=== PATIENT | male | born 1970 | race African-American/Black ===

== ENCOUNTER 2017-08-24 01:18 | Emergency (ER) | payer BC ==
[2017-08-24] MEDS ORDERED: Nitroglycerin 2% Ointment 1 INCH/1 GM Packet ONE (01:58)
[2017-08-24] MEDS ORDERED: Furosemide 40 MG/4 ML VIAL ONE (01:58)
[2017-08-24 03:05] LABS: Band 2 % (5-11); Hematocrit 31.7 % (42.0-52.0); Mean Platelet Volume 7.7 fL (7.4-10.4); Microcytosis SLIGHT = 6-15 cells (100X) (0-5/hpf); Neutrophil 57 % (42-75); Red Blood Cell (RBC) Count 3.66 mill/uL (4.70-6.10); White Blood Cell (WBC) Count 6.7 thou/uL (4.8-10.8)
[2017-08-24 03:49] LABS: Troponin I 0.037 ng/mL (< 0.028)
[2017-08-24 04:02] LABS: ALT (SGPT) 38 U/L (8-55); AST (SGOT) 33 U/L (5-34); Alkaline Phosphatase 108 U/L (40-150); Anion Gap 12 mmol/L (10-20); BUN (Urea Nitrogen) 27 mg/dL (8.9-20.6); Bilirubin, Total 0.3 mg/dL (0.2-1.2); Calc. Creatinine Clearance 0 mL/min (70-130); Calcium 8.8 mg/dL (7.8-10.44); Carbon Dioxide 24 mmol/L (22-29); Chloride 107 mmol/L (98-107); Estimated GFR-MDRD 63; Globulin 3.3 g/dL (2.4-3.5); Lipase 30 U/L (8-78); Protein, Total 6.7 g/dL (6.0-8.3)
--- NOTE | 2017-08-24 07:56 | RAD ---
PORTABLE CHEST 1 VIEW: Date: 08/24/17 Time: 0220 hours HISTORY: Dyspnea. FINDINGS: Comparison made with exam of 04/11/17. Changes of median sternotomy are again seen. The heart size is borderline. There is continued elevat ion of the right hemidiaphragm. No lobar consolidation, pneumothorax, jessica pulmonary edema, or pleu ral effusions are seen. IMPRESSION: No acute process. POS: JOSELIN
== END 2017-08-24 04:36 | disposition home or self-care (01) ==
LOC: SCSER 01:18
DX: I13.0 Hypertensive heart and chronic kidney disease with heart failure and stage 1 through stage 4 chronic kidney disease, or unspecified chronic kidney disease (principal); E11.22 Type 2 diabetes mellitus with diabetic chronic kidney disease; E11.65 Type 2 diabetes mellitus with hyperglycemia; I50.9 Heart failure, unspecified; N18.2 Chronic kidney disease, stage 2 (mild); E78.00 Pure hypercholesterolemia, unspecified; Z79.899 Other long term (current) drug therapy; Z79.4 Long term (current) use of insulin
CPT/HCPCS: 71010; 80053; 82553; 83690; 83880; 84484; 85025; 96374; J1940

== ENCOUNTER 2017-12-26 10:47 | Emergency (ER) | payer BC, OTHER, SELFPAY ==
[2017-12-26] MEDS ORDERED: Fentanyl 100 MCG/2 ML VIAL ONE (12:33)
== END 2017-12-26 12:28 | disposition home or self-care (01) ==
LOC: SCSER 10:47
DX: I10 Essential (primary) hypertension (principal); I25.10 Atherosclerotic heart disease of native coronary artery without angina pectoris; I25.2 Old myocardial infarction; E11.9 Type 2 diabetes mellitus without complications; Z79.4 Long term (current) use of insulin; E78.5 Hyperlipidemia, unspecified; Z79.899 Other long term (current) drug therapy
CPT/HCPCS: 93005; J3010

== ENCOUNTER 2019-08-12 10:35 | Day surgery (SDC) | payer MEDICARE ==
[2019-08-12] MEDS ORDERED: Phenylephrine HCL 10 MG/ML VIAL ONE (11:25)
[2019-08-12] MEDS ORDERED: Fentanyl 100 MCG/2 ML VIAL ONE (11:25)
[2019-08-12] MEDS ORDERED: Bupivacaine HCl 0.5%/Epinephrine 1:200,000/PF 30 ml Vial ONE (11:29)
[2019-08-12] MEDS ORDERED: Bupivacaine/Epinephrine 0.25% 30 ML VIAL ONE (11:29)
[2019-08-12] MEDS ORDERED: Heparin 5,000 UNITS/ML VIAL ONE (11:29)
[2019-08-12] MEDS ORDERED: Lidocaine 2% PF 5 ML VIAL ONE (11:29)
[2019-08-12] MEDS ORDERED: Protamine Sulfate 50 MG/5 ML VIAL ONE (11:29)
[2019-08-12] MEDS ORDERED: Heparin 10,000 UNITS/1 ML VIAL ONE (11:29)
[2019-08-12 11:46] LABS: #Eosinphils 0.2 thou/uL (0.0-0.7); #Lymphocytes 1.4 thou/uL (1.20-3.40); #Monocytes 0.5 thou/uL (0.11-0.59); #Neutrophils 3.7 thou/uL (1.40-6.50); %Basophils 0.8 % (0.0-1.0); %Eosinophils 3.1 % (0.0-10.0); %Lymphocytes 24.9 % (21.0-51.0); %Monocytes 7.9 % (0.0-10.0); %Neutrophils 63.2 % (42.0-75.0); Hemoglobin 8.8 g/dL (14.0-18.0); Mean Corpuscular HGB CONC 31.8 g/dL (32.0-36.0); Mean Corpuscular Hemoglobin 30.5 pg (27.0-31.0); Mean Platelet Volume 9.3 fL (7.4-10.4); Platelet Count 146 thou/uL (130-400); RBC Distribution Width 15.8 % (11.5-14.5); White Blood Cell (WBC) Count 5.8 thou/uL (4.8-10.8)
[2019-08-12] MEDS ORDERED: SUGAMMADEX SODIUM 200 MG/2 ML VIAL ONE (12:02)
[2019-08-12 12:21] LABS: Anion Gap 13 mmol/L (10-20); BUN (Urea Nitrogen) 42 mg/dL (8.9-20.6); Calc. Creatinine Clearance 0 mL/min (70-130); Calcium 8.5 mg/dL (7.8-10.44); Carbon Dioxide 20 mmol/L (22-29); Chloride 112 mmol/L (98-107); Estimated GFR-MDRD 14; Glucose 179 mg/dL (70-105); Potassium 3.8 mmol/L (3.5-5.1); Sodium 141 mmol/L (136-145)
[2019-08-12] MEDS ORDERED: hydrALAZINE 20 MG/ML VIAL ONE (14:41)
[2019-08-12] MEDS ORDERED: Heparin 10,000 UNITS/ 10 ML VIAL ONE (16:30)
[2019-08-12] MEDS ORDERED: traMADol HCl 50 MG TAB ONE (16:30)
--- NOTE | 2019-08-12 18:58 | OP ---
DATE OF PROCEDURE: 08/12/2019 PREOPERATIVE DIAGNOSES: End-stage renal disease, status post left radial artery harvest for past coronary artery bypass grafting. POSTOPERATIVE DIAGNOSES: End-stage renal disease, status post left radial artery harvest for past coronary artery bypass grafting. PROCEDURE PERFORMED: Laparoscopic peritoneal dialysis catheter placement; laparoscopic omentopexy; right arm primary fistula; proximal radial artery outflow, cephalic vein only, no communication to basilic vein noted. ANESTHESIA: General, local 0.5% Marcaine with epinephrine 30 mL mixed with 0.25% Marcaine with epinephrine 30 mL. DESCRIPTION OF PROCEDURE: The patient was taken to the operating room, where under general anesthesia, abdomen and right upper extremity were prepared with ChloraPrep and draped in routine fashion. Local anesthetic was infiltrated in the skin and subcutaneous tissue about the operative site. Bilateral subcostal incisions were made. Pneumoperitoneum to 15 mmHg was obtained with a Veress needle, replaced with a 5 port, and laparoscope inserted. Contralateral 5 port was placed. Incision was made in the left paraumbilical. An 8 mm port was placed, directed caudally in the subcutaneous tissue into the rectus sheath, visualized laparoscopically penetrating the posterior fascia and peritoneum dependently, inserting the double cuffed pigtail peritoneal dialysis catheter and placing the internal cuff in the rectus sheath as the port was removed using the [place] dissector, placed through the planned exit site stab incision in left lower quadrant. Nancy dissector was directed toward the counterincision, grasping the catheter, pulling the catheter out the exit site, and placing an external cuff beneath the skin exit site. Subcutaneous tissue was approximated with 3-0 Monocryl, skin with subdermal 4-0 Monocryl, and [place] glue applied as catheter flushed with heparinized saline solution and then the catheter was placed and it was secured within the dressing. Laparoscopic omentopexy was completed under laparoscopic visualization and pneumoperitoneum was reduced. All instruments were removed. All skin incisions were approximated with interrupted subdermal 4-0 Monocryl and [place] glue applied. Incision was made in the proximal volar forearm, carried down to skin and subcutaneous tissue, and extending distally as necessary. Radial artery dissected free. The patient was given 6000 units of heparin intravenously. The distal end of the vein was clipped off branches and triply clipped on outflow as there was no perforating branch. The forearm cephalic vein was then brought into the wound and interrogated with coronary dilators after spatulating the branch point. Coronary dilators from 2 mm to 3.5 mm were passed without obstruction and into the cephalic vein outflow of upper arm. It was flushed with heparinized saline solution. The patient was given 6000 units of heparin intravenously. After adequate circulation time, the proximal radial artery was clamped proximally and distally. Longitudinal arteriotomy was made sharply and elongated with Mcbride scissors. An end vein to side proximal radial artery anastomosis was performed with continuous suture of 6-0 Prolene, completing the anastomosis, administering 50 mg of protamine intravenously. Good hemostasis was noted. Good Doppler signal was noted in the cephalic vein outflow of upper arm. Subcutaneous tissues were approximated with 3-0 Monocryl, skin with subdermal 4-0 Monocryl, and [place] glue applied. Job ID: [id number]
== END 2019-08-12 16:45 | disposition home or self-care (01) ==
LOC: SDC 10:35
PROVIDERS: ATTEND Specialist
PROC: 0WHG43Z Insertion of Infusion Device into Peritoneal Cavity, Percutaneous Endoscopic Approach (ICD-10-PCS; principal; 2019-08-12)
PROC: 031B3ZF Bypass Right Radial Artery to Lower Arm Vein, Percutaneous Approach (ICD-10-PCS; 2019-08-12)
DX: N18.6 End stage renal disease (principal); Z88.8 Allergy status to other drugs, medicaments and biological substances
CPT/HCPCS: 80048; 85025; 93005; 93010; J0131; J0360; J0670; J0690; J1644; J2001; J2370; J2720; J3010

== ENCOUNTER 2019-08-12 18:18 | Emergency (ER) | payer MEDICARE | END 2019-08-12 18:47 | disposition left against medical advice (07) | LOC: ERS 18:18 | DX: Z53.21 Procedure and treatment not carried out due to patient leaving prior to being seen by health care provider (principal) ==

== ENCOUNTER 2019-08-12 19:10 | Emergency (ER) | payer MEDICARE | END 2019-08-12 19:46 | disposition home or self-care (01) | LOC: SCSER 19:10 | DX: T81.89XA Other complications of procedures, not elsewhere classified, initial encounter (principal) ==

== ENCOUNTER 2019-08-17 09:02 | Emergency (ER) | payer MEDICARE | END 2019-08-17 10:39 | disposition home or self-care (01) | LOC: SCSER 09:02 | DX: T85.838A Hemorrhage due to other internal prosthetic devices, implants and grafts, initial encounter (principal); E11.22 Type 2 diabetes mellitus with diabetic chronic kidney disease; I12.0 Hypertensive chronic kidney disease with stage 5 chronic kidney disease or end stage renal disease; N18.6 End stage renal disease; I25.10 Atherosclerotic heart disease of native coronary artery without angina pectoris; Z79.4 Long term (current) use of insulin; Z91.14 Patient's other noncompliance with medication regimen; Z79.899 Other long term (current) drug therapy | CPT/HCPCS: 99283 ==

== ENCOUNTER 2019-08-24 10:37 | Emergency (ER) | payer MEDICARE | END 2019-08-24 11:05 | disposition home or self-care (01) | LOC: SCSER 10:37 | DX: Z48.00 Encounter for change or removal of nonsurgical wound dressing (principal); E11.22 Type 2 diabetes mellitus with diabetic chronic kidney disease; N18.6 End stage renal disease; Z99.2 Dependence on renal dialysis; I25.10 Atherosclerotic heart disease of native coronary artery without angina pectoris; Z79.4 Long term (current) use of insulin; Z79.899 Other long term (current) drug therapy | CPT/HCPCS: 99282 ==

== ENCOUNTER 2019-09-03 03:46 | Emergency (ER) | payer MEDICARE, MEDICAID ==
[2019-09-03 04:53] LABS: #Basophils 0.1 thou/uL (0.0-0.2); #Eosinphils 0.4 thou/uL (0.0-0.7); #Lymphocytes 1.6 thou/uL (1.20-3.40); #Monocytes 0.5 thou/uL (0.11-0.59); %Basophils 1.1 % (0.0-1.0); %Eosinophils 7.2 % (0.0-10.0); %Lymphocytes 28.4 % (21.0-51.0); %Monocytes 8.7 % (0.0-10.0); %Neutrophils 54.6 % (42.0-75.0); Hemoglobin 10.7 g/dL (14.0-18.0); Mean Corpuscular HGB CONC 32.6 g/dL (32.0-36.0); Mean Corpuscular Hemoglobin 30.8 pg (27.0-31.0); Mean Corpuscular Volume 94.5 fL (78.0-98.0); Mean Platelet Volume 9.7 fL (7.4-10.4); Platelet Count 144 thou/uL (130-400); RBC Distribution Width 15.7 % (11.5-14.5); Red Blood Cell (RBC) Count 3.48 mill/uL (4.70-6.10); White Blood Cell (WBC) Count 5.5 thou/uL (4.8-10.8)
[2019-09-03 05:15] LABS: ALT (SGPT) 21 U/L (8-55); AST (SGOT) 22 U/L (5-34); Albumin 3.5 g/dL (3.5-5.0); Alkaline Phosphatase 81 U/L (40-110); Anion Gap 20 mmol/L (10-20); BUN (Urea Nitrogen) 86 mg/dL (8.9-20.6); Bilirubin, Total 0.5 mg/dL (0.2-1.2); Calc. Creatinine Clearance 0 mL/min (70-130); Carbon Dioxide 22 mmol/L (22-29); Chloride 102 mmol/L (98-107); Estimated GFR-MDRD 6; Globulin 2.7 g/dL (2.4-3.5); Glucose 200 mg/dL (70-105); Potassium 4.6 mmol/L (3.5-5.1); Protein, Total 6.2 g/dL (6.0-8.3); Sodium 139 mmol/L (136-145)
[2019-09-03 06:10] LABS: CKMB 27.5 ng/mL (0-6.6)
--- NOTE | 2019-09-03 07:29 | RAD ---
Exam: Chest one view HISTORY:Short of breath Comparison: 08/24/2017 FINDINGS: Lungs: Mild interstitial prominence bilaterally Cardiac silhouette:Enlarged cardiac silhouette, with evidence of prior sternotomy. Tunneled vascular catheter projects from a right internal jugular approach, tip overlying right atria l region. Pulmonary vessels: Mild engorgement Pleural Spaces: No significant effusion Pneumothorax: None Osseous abnormalities: None of acuity. IMPRESSION: Fluid overload.
== END 2019-09-03 05:53 | disposition home or self-care (01) ==
LOC: ERS 03:46
DX: R06.02 Shortness of breath (principal); R05 Cough; E11.22 Type 2 diabetes mellitus with diabetic chronic kidney disease; N18.6 End stage renal disease; Z99.2 Dependence on renal dialysis; Z79.899 Other long term (current) drug therapy
CPT/HCPCS: 71045; 80053; 82553; 83880; 84484; 85025; 93005

== ENCOUNTER 2019-09-03 18:54 | Inpatient (IN) | payer MEDICAID, MEDICARE ==
[2019-09-03 20:25] LABS: Hemoglobin 11.9 g/dL (14.0-18.0); Mean Corpuscular HGB CONC 32.6 g/dL (32.0-36.0); Mean Corpuscular Hemoglobin 31.2 pg (27.0-31.0); Mean Corpuscular Volume 95.7 fL (78.0-98.0); Mean Platelet Volume 10.3 fL (7.4-10.4); Platelet Count 130 thou/uL (130-400); RBC Distribution Width 15.8 % (11.5-14.5); Red Blood Cell (RBC) Count 3.81 mill/uL (4.70-6.10); White Blood Cell (WBC) Count 5.1 thou/uL (4.8-10.8)
[2019-09-03 20:39] LABS: Hypochromia SLIGHT = 6-15 cells (100X) (0-5/hpf); Lymphocytes 23 % (21-51); MDiff Complete? YES; Monocytes 2 % (0-10); Neutrophil 75 % (42-75); Platelet Morphology Comment Appears Adequate
[2019-09-03 21:01] LABS: Albumin 3.6 g/dL (3.5-5.0)
[2019-09-03 21:02] LABS: Chloride 106 mmol/L (98-107); Potassium 6.1 mmol/L (3.5-5.1); Sodium 142 mmol/L (136-145)
[2019-09-03 21:04] LABS: Globulin 2.9 g/dL (2.4-3.5); Protein, Total 6.5 g/dL (6.0-8.3)
[2019-09-03 21:05] LABS: Anion Gap 26 mmol/L (10-20); Bilirubin, Total 0.6 mg/dL (0.2-1.2); Carbon Dioxide 16 mmol/L (22-29)
[2019-09-03 21:06] LABS: CKMB 30.7 ng/mL (0-6.6)
[2019-09-03 21:07] LABS: Calc. Creatinine Clearance 0 mL/min (70-130); Estimated GFR-MDRD 6
[2019-09-03 21:08] LABS: AST (SGOT) 27 U/L (5-34)
[2019-09-03 22:00] LABS: Glucose 315 mg/dL (70-105)
[2019-09-03 22:03] LABS: Alkaline Phosphatase 79 U/L (40-110)
[2019-09-03 22:04] LABS: BUN (Urea Nitrogen) 94 mg/dL (8.9-20.6)
[2019-09-03 22:06] LABS: ALT (SGPT) 22 U/L (8-55)
--- NOTE | 2019-09-03 23:59 | PDOC.FPRHP ---
- History of Present Illness Chief Complaint: shortness of breath, abnormal lab History of Present Illness: 48yo AAM with ESRD on Peritoneal dialysis, HTN, DMII, CAD s/p 4v CABG who present to ED after receiving call to return to ED for abnormal lab. Pt awoke this morning at 0400 with dyspnea. Presented to ED, trop was indeterminate at 0.069. Pt VSS and was discharged with return precautions. Pt states sxs of dyspnea resolved. Was called by Dr. Haile and told to return to ED. Currently pt states his only complaint is uncomfortable with peritoneal dialysis. States he was on HD since Nov 2018. Recently started on peritoneal dialysis, states he does not like this form of dialysis. Is planning to switch back to HD, has right fistula placed Aug 12 and right trialysis cath in place. Pt currently denies any SOB, CP, orthopnea, PND, LE edema, n/v, diaphoresis. Endorses alternating constipation and diarrhea, chronically. ED Course: Trops trended. EKG obtained. Dialysis nurse called to begin peritoneal dialysis in ED. - Allergies/Adverse Reactions Allergies Allergy/AdvReac Type Severity Reaction Status Date / Time ketorolac tromethamine Allergy Intermediate "felt like Verified 09/04/19 03:17 [From Toradol] I was going to fall out" amlodipine Allergy Verified 09/04/19 03:17 - Home Medications Medication Instructions Recorded Confirmed Type Nitroglycerin 0.4 mg SL PRN PRN 04/11/17 09/04/19 History Aspirin [Aspir-Low] 81 mg PO DAILY 08/11/19 09/04/19 History Carvedilol [Coreg] 25 mg PO BID-WM 08/11/19 09/04/19 History Ferrous Sulfate [Ferosul] 325 mg PO DAILY 08/11/19 09/04/19 History Furosemide 40 mg PO BID 08/11/19 09/04/19 History Insulin Detemir 100 UNITS/ML 50 units SC BID PRN 08/11/19 09/04/19 History [Levemir] Isosorbide Mononitrate 1 tab PO QAM 08/11/19 09/04/19 History cloNIDine [Catapres] 0.2 mg PO BID 08/11/19 09/04/19 History hydrALAZINE [Apresoline] 20 mg PO TID 08/11/19 09/04/19 History Pravastatin Sodium 40 mg PO HS 09/04/19 09/04/19 History Comments: Reviewed medications above with patient. He does not take crestor. He takes Pravastatin 40 mg daily. All other medications above are correct. . - History PMHx: ESRD on dialysis, HTN, DMII, CAD PSHx: 4v CABG 2015, Right fistula placement (08/12) FHx: HTN, Mother- CHF, Brother- Prostate Cancer, Sister- Stroke Social: Denies any smoking, drinking or illicit drug use. Lives at home by himself. 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 denies: cough, congestion Cardiovascular: denies: chest pain, palpitation, edema, orthopnea Gastrointestinal: reports: diarrhea, constipation, abdominal pain (2/2 peritoneal dialysis). denies: nausea, vomiting, GI bleeding Skin: denies: rashes, lesions Musculoskeletal: denies: pain, stiffness, swelling, arthritis/arthralgias Neurological: denies: numbness, weakness Psychological: denies: anxiety, depression - Vital signs BP: [207/101] HR: [67] RR: [18] Tmax: [] Pox: [95]% on [RA] Wt: [101kg] - Physical Exam Constitutional: NAD, awake, alert and oriented, well developed HEENT: EOMI, grossly normal vision, grossly normal hearing, MMM, oropharynx clear Neck: supple, trachea midline Heart: RRR, normal S1/S2, no murmurs/rubs/gallops, pulses present, no edema Lungs: CTAB, no respiratory distress, good air movement, no rales/rhonchi, no wheezing Abdomen: soft, other (mildly TTP, peritoneal dialysis) Neurological: no focal deficit Skin: no rash/lesions Heme/Lymphatic: no unusual bruising or bleeding Psychiatric: normal mood and affect, good judgment and insight, intact recent and remote memory FMR H&P: Results - Labs Result Diagrams: 09/03/19 19:26 09/03/19 21:14 Lab results: WBC 5.1 thou/uL (4.8-10.8) 09/03/19 19:26 Hgb 11.9 g/dL (14.0-18.0) L 09/03/19 19:26 Hct 36.5 % (42.0-52.0) L 09/03/19 19:26 MCV 95.7 fL (78.0-98.0) 09/03/19 19:26 Plt Count 130 thou/uL (130-400) 09/03/19 19:26 Sodium 142 mmol/L (136-145) 09/03/19 21:14 Potassium 6.1 mmol/L (3.5-5.1) H 09/03/19 21:14 Chloride 106 mmol/L (98-107) 09/03/19 21:14 Carbon Dioxide 16 mmol/L (22-29) L 09/03/19 21:14 BUN 94 mg/dL (8.9-20.6) H 09/03/19 21:14 Creatinine 11.33 mg/dL (0.7-1.3) H 09/03/19 21:14 Glucose 315 mg/dL (70-105) H 09/03/19 21:14 Calcium 9.0 mg/dL (7.8-10.44) 09/03/19 21:14 Total Bilirubin 0.6 mg/dL (0.2-1.2) 09/03/19 21:14 AST 27 U/L (5-34) 09/03/19 21:14 ALT 22 U/L (8-55) 09/03/19 21:14 Alkaline Phosphatase 79 U/L (40-110) 09/03/19 21:14 CK-MB (CK-2) 30.7 ng/mL (0-6.6) H* 09/03/19 19:26 Serum Total Protein 6.5 g/dL (6.0-8.3) 09/03/19 21:14 Albumin 3.6 g/dL (3.5-5.0) 09/03/19 21:14 - EKG Interpretation EKG: Normal axis. Good R wave progression. nonspecific T wave inversion throughout. Repeat EKG stable. No acute ST changes. - Radiology Interpretation Chest x-ray Status: report reviewed by me (Fluid overload) FMR H&P: A/P - Problem List (1) New onset of congestive heart failure Current Visit: Yes Status: Acute Code(s): I50.9 - HEART FAILURE, UNSPECIFIED (2) Hyperkalemia Current Visit: Yes Status: Acute Code(s): E87.5 - HYPERKALEMIA (3) Elevated troponin Current Visit: Yes Status: Acute Code(s): R79.89 - OTHER SPECIFIED ABNORMAL FINDINGS OF BLOOD CHEMISTRY (4) Hypertensive urgency Current Visit: Yes Status: Acute Code(s): I16.0 - HYPERTENSIVE URGENCY (5) Coronary artery disease Current Visit: No Status: Chronic Code(s): I25.10 - ATHSCL HEART DISEASE OF [place] CORONARY ARTERY W/O ANG PCTRS (6) Hypertension Current Visit: Yes Status: Chronic Code(s): I10 - ESSENTIAL (PRIMARY) HYPERTENSION (7) History of four vessel coronary artery bypass graft Current Visit: No Status: Chronic Code(s): Z95.1 - PRESENCE OF AORTOCORONARY BYPASS GRAFT (8) Hyperlipidemia Current Visit: No Status: Chronic Code(s): E78.5 - HYPERLIPIDEMIA, UNSPECIFIED Qualifiers: Hyperlipidemia type: mixed hyperlipidemia Qualified Code(s): E78.2 - Mixed hyperlipidemia - Plan 48yo AAM on peritoneal dialysis for ESRD, h/o HTN, CAD s/p 4v CABG, DMII presents for hyperkalemia, elevated troponin, newonset CHF, and hypertensive urgency. #Newonset CHF - h/o CAD and 4v CABG in 2016 - Daily ASA - Records reviewed, and no previous Echos. 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 Will consult Cards in AM - BNP elevated at AM ED visit to 980, higher than any previous visit - On 40mg lasix BID at home, produces urine, will transition to 40IV lasix BID - strict I/O's and daily weights -Cardiac rehab consulted - cont dialysis - Echo in AM #Hyperkalemia - K 6.1 - Previously 4.6 at AM ED visit - Undergoing peritoneal dialysis overnight - Will recheck in AM - No EKG changes - Monitor on tele #Elevated Troponin - Trop 0.077, records reviewed and troponin 0.069 this AM - likely 2/2 volume overload, ESRD, and newonset CHF - No acute EKG changes, asymptomatic - Will trend x3 - Monitor on tele - Will consult cards AM, possible stress - Will hold Beta nieves #Hypertensive urgency - BP 226/103 - Pt states he "lives in the 200s" - Will give home BP meds tonight, monitor, prn hydrazine - Will cont to monitor - Will cont home BP meds #ESRD on peritoneal dialysis - Pt of Dr. Haile - Undergoing peritoneal dialysis overnight - Plans to transition back to HD - Consulted Dr. Haile, apprec recs #DMII - Takes levamir 50u BID prn at home - Started on lantus 50u AM lamar and moderate SS Insulin - ACHS accuchecks - Hyperglycemic protocol #HLD - d/c home lovastatin, started high-intensity statin of Atorva 40. #CAD - s/p 4v CABG in 2016 - cont home medications, holding beta nieves Code: Full Diet: HH, NPO at midnight IVF: SL VTE: Heparin PCP: [facility]- Cullen Donahue Disposition/LOS: Admit to telemetry inpatient for hyperkalemia, newonset CHF with exercerbation, HTN urgency. Cont dialysis, consulted Nephro, apprec recs. Trend trops. Echo in AM. Lasix BID. Anticipate hospitalization 2-3 days. FMR H&P: Upper Level - Pertinent history I was present with the regulatory affairs internship during the HPI. I scribed the above document. I made edits as needed. - Pertinent findings Pt resting comfortably. Peritoneal dialysis running. No acute phys exam findings noted. - Plan Date/Time: 09/03/19 8097 I, Darryl Grayson PGY-3, have evaluated this patient and agree with findings/ plan as outlined by regulatory affairs internship resident. Pertinent changes/additions are listed here. See above for detailed plan. I discussed plan and made edits to above plan as needed. At this time will admit with concern for new onset CHF and hyperkalemia. Pt also has ESRD on hemodialysis. Pt wishes to switch from peritoneal to HD. Will await recs. Will consult cards in AM for CHF concern and indeterminate trops. Pt was getting dialysis during exam. Will recheck potassium in AM. No acute changes noted on EKG. Pt had no acute complaints at this visit. Reports was called for lab abnormalities after being seen in ER in AM.
[2019-09-04 00:07] LABS: Troponin I 0.069 ng/mL (< 0.028)
[2019-09-04] MEDS ORDERED: hydrALAZINE 20 MG/ML VIAL ONE (01:49)
[2019-09-04 02:48] LABS: Troponin I 0.056 ng/mL (< 0.028)
[2019-09-04] MEDS ORDERED: Acetaminophen 325 MG TAB PO PRN (02:48)
[2019-09-04] MEDS ORDERED: Senokot S 8.6-50 MG TAB PO PRN (02:48)
[2019-09-04] MEDS ORDERED: Dextrose 5% in Water 1,000 ML IV PRN (02:48)
[2019-09-04] MEDS ORDERED: Ondansetron ODT 4 MG TAB PO PRN (02:48)
[2019-09-04] MEDS ORDERED: Ondansetron PF 4 MG/2 ML Vial IVP PRN (02:48)
[2019-09-04] MEDS ORDERED: hydrALAZINE 20 MG/ML VIAL SLOW IVP PRN (02:48)
[2019-09-04] MEDS ORDERED: Calcium Carbonate 500 MG ChewTAB PO PRN (02:48)
[2019-09-04] MEDS ORDERED: Dextrose 50% Abboject 50 ML SYRINGE SLOW IVP PRN (02:48)
[2019-09-04 03:07] LABS: Magnesium 2.3 mg/dL (1.6-2.6); Phosphorus 7.1 mg/dL (2.3-4.7)
[2019-09-04 03:51] VITALS: BMI 32.3
[2019-09-04 05:48] LABS: #Basophils 0.1 thou/uL (0.0-0.2); #Eosinphils 0.3 thou/uL (0.0-0.7); #Lymphocytes 1.2 thou/uL (1.20-3.40); #Monocytes 0.6 thou/uL (0.11-0.59); #Neutrophils 3.1 thou/uL (1.40-6.50); %Basophils 1.2 % (0.0-1.0); %Eosinophils 5.9 % (0.0-10.0); %Lymphocytes 22.5 % (21.0-51.0); %Monocytes 10.6 % (0.0-10.0); %Neutrophils 59.9 % (42.0-75.0); Hemoglobin 11.1 g/dL (14.0-18.0); Mean Corpuscular HGB CONC 32.8 g/dL (32.0-36.0); Mean Corpuscular Hemoglobin 31.1 pg (27.0-31.0); Mean Corpuscular Volume 94.8 fL (78.0-98.0); Mean Platelet Volume 9.8 fL (7.4-10.4); Platelet Count 151 thou/uL (130-400); RBC Distribution Width 15.6 % (11.5-14.5); Red Blood Cell (RBC) Count 3.57 mill/uL (4.70-6.10); White Blood Cell (WBC) Count 5.2 thou/uL (4.8-10.8)
[2019-09-04] MEDS: HumaLOG 300 UNITS/3 ML VIAL SC PRN ×2 (06:07→18:45)
[2019-09-04 06:09] LABS: ALT (SGPT) 20 U/L (8-55); AST (SGOT) 17 U/L (5-34); Albumin 3.4 g/dL (3.5-5.0); Alkaline Phosphatase 75 U/L (40-110); Anion Gap 20 mmol/L (10-20); BUN (Urea Nitrogen) 91 mg/dL (8.9-20.6); Bilirubin, Total 0.5 mg/dL (0.2-1.2); Calc. Creatinine Clearance 11 mL/min (70-130); Calcium 9.1 mg/dL (7.8-10.44); Carbon Dioxide 23 mmol/L (22-29); Chloride 104 mmol/L (98-107); Estimated GFR-MDRD 6; Globulin 2.7 g/dL (2.4-3.5); Glucose 180 mg/dL (70-105); Potassium 4.4 mmol/L (3.5-5.1); Protein, Total 6.1 g/dL (6.0-8.3); Sodium 143 mmol/L (136-145)
[2019-09-04] MEDS: Furosemide 40 MG/4 ML VIAL SLOW IVP SCH ×2 (06:10→16:05)
[2019-09-04 08:58] LABS: HBSAg Index 0.89 S/CO (0-0.99); Hep B Surf Ag Non-Reactive S/CO (NonReactive)
[2019-09-04] MEDS ORDERED: Insulin Glargine 50 UNITS in Pre-Filled Syringe 1 EACH SC SCH (09:00)
[2019-09-04] MEDS ORDERED: cloNIDine 0.2 MG TAB PO SCH (09:00)
--- NOTE | 2019-09-04 09:13 | CON ---
DATE OF CONSULTATION: HISTORY OF PRESENT ILLNESS: Mr. Wood is a 48-year-old black male with ESRD and currently has been converted to peritoneal dialysis. However, he is not tolerating his peritoneal dialysis regimen. For that reason, he is not able to do any ultrafiltration. He came in yesterday complaining of shortness of breath. Review of the chest x-ray shows him to be in CHF. Since he is unable to do his peritoneal dialysis and he has no dialysis placement for hemodialysis, he was admitted for further hemodialysis. Again, we attempted to use peritoneal dialysis last night, but the patient cannot tolerate it. He complains of being short of breath when the PD fluid is seen. This is even in spite of a low fill volume of 1 L. I have scheduled this patient for hemodialysis today for 4 hours and again reschedule him tomorrow. We have to find an outpatient hemodialysis placement with him. REVIEW OF SYSTEMS: Positive for shortness of breath, but denies any chest pain. No syncopal episode. Positive for abdominal fullness. No nausea. No vomiting. Appetite fair. No gross hematuria. No dysuria. No urinary frequency. No fever or chills. No joint pains. No hematochezia. No melena. No hematemesis. HOME MEDICATIONS: Include the following; 1. Nitroglycerin 0.4 mg sublingual p.r.n. 2. Aspirin 81 mg tablet once a day. 3. Carvedilol 25 mg p.o. b.i.d. 4. Ferrous sulfate 325 mg once a day. 5. Furosemide 40 mg b.i.d. 6. Insulin detemir 50 units subcu b.i.d. 7. Imdur 1 tab q.a.m. 8. Clonidine 0.2 mg p.o. b.i.d. PAST MEDICAL HISTORY: 1. ESRD from diabetic nephropathy. 2. Hypertension. 3. Coronary artery disease. 4. Type 2 diabetes mellitus. PAST SURGICAL HISTORY: Status post cardiac cath, status post AV fistula placement, status post cuffed hemodialysis catheter placement, status post CABG, and status post PD catheter placement. SOCIAL HISTORY: The patient is single. No children. Lives in [place]. Education, high school. No smoking. No alcohol intake. No IV drug abuse. Status post blood transfusion. Active lifestyle. ALLERGIES: KETORALAC, AMLODIPINE. TRAUMA: None. IMMUNIZATIONS: Up-to-date. HOSPITALIZATIONS: Please see past medical history. FAMILY HISTORY: No family history of ESRD. PHYSICAL EXAMINATION: VITAL SIGNS: Blood pressure is noted at 171/80, heart rate 72, respiratory rate 16, temperature 98, and pulse ox 95%. GENERAL: The patient is noted to be awake, alert, comfortable, not in distress. SKIN: Adequate turgor. HEENT: He has slightly pale conjunctivae. Anicteric sclerae. NECK: No neck mass. No carotid bruits. No JVD. CHEST: No deformities. LUNGS: Clear breath sounds. HEART: Normal sinus rhythm. No murmur. No gallops. No rubs. ABDOMEN: Globular, soft, and nontender. No masses. Positive for PD catheter. EXTREMITIES: Trace edema. NEUROLOGICAL: Moving all extremities. No tremors. No asterixis. No ataxia. LABORATORY DATA: Laboratories of September 04, 2019; white count 5.2, hemoglobin 11.1. Sodium 143, potassium 4.4, chloride 104, carbon dioxide 23, BUN 91, creatinine 11.3, glucose 180, and calcium 9.1, AST 17, ALT 20, and albumin 3.4. Repeat glucose 158. IMAGING DATA: Chest x-ray shows CHF. ASSESSMENT AND PLAN: 1. Congestive heart failure, emergent hemodialysis. We will attempt to remove 4 L as tolerated by the patient. 2. End-stage renal disease. Continue current hemodialysis for the moment. We will do an emergent dialysis and place him on a Sunday, Sunday, and Sunday hemodialysis regimen. The patient is not tolerating the peritoneal dialysis. We may need to reconsider stopping his peritoneal dialysis. However, I have not given upon on this patient. I want to him to again retry peritoneal dialysis if he will agree with me. Consider using only small fill volumes of 1 L, so that this will not make the patient too uncomfortable. Job ID: [id number]
[2019-09-04] MEDS: Ferrous Sulfate 325 MG TAB PO SCH (09:44)
[2019-09-04] MEDS: Isosorbide Mononitrate 20 MG TAB PO SCH (09:44)
[2019-09-04] MEDS: hydrALAZINE 10 MG TAB PO SCH ×3 (09:44→20:40)
[2019-09-04] MEDS: cloNIDine 0.1 MG TAB PO SCH ×2 (09:45→20:39)
[2019-09-04] MEDS: Heparin 5,000 UNITS/ML VIAL SC SCH ×3 (09:45→20:41)
[2019-09-04] MEDS: Aspirin 81 mg Enteric Coated Tablet PO SCH (09:45)
--- NOTE | 2019-09-04 11:28 | PRG ---
DATE OF SERVICE: 09/04/2019 Mr. Wood is a pleasant 48-year-old black man, who normally is on peritoneal dialysis at home. He has been having some discomfort in the abdomen and chest from this procedure and wishes to go back to hemodialysis. He was admitted early this morning, was slightly fluid overloaded and is currently in dialysis. He is tolerating this well and can likely be discharged later today. I believe most of the chest/abdominal discomfort he has is related to his peritoneal dialysis. 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 He is also seeing physicians in [place]. Job ID: [id number]
--- NOTE | 2019-09-04 12:22 | HP ---
I have examined the patient. I have discussed the case with Dr. Artur Lyons and agreed with his assessment and plan. HISTORY OF PRESENT ILLNESS: Mr. Wood is a pleasant 48-year-old black man with end-stage renal disease, who is currently on peritoneal dialysis. He had been having some shortness of breath and possible abnormal labs and was told to come to the ER where he was subsequently admitted. He is currently in dialysis and in no distress. PHYSICAL EXAMINATION: VITAL SIGNS: His blood pressure was 200/87. GENERAL: He is awake, alert, in no distress. EAR, NOSE, AND THROAT: No erythema, no exudate. NECK: Supple. CARDIAC: Heart rhythm regular. No gallop or murmur noted. LUNGS: Clear. ABDOMEN: Flat, benign, soft. NEUROLOGIC: No focal deficits. LABORATORY DATA: CBC; white count 5100, hemoglobin 11.9, and hematocrit 36.5. Chemistries; sodium 143, potassium 4.4, chloride 104, BUN 91, and creatinine 11.3. Troponin is indeterminate averaging around 0.06 to 0.05. ASSESSMENT: End-stage renal disease, on hemodialysis. PLAN: We will follow with Dr. Haile. Job ID: [id number]
[2019-09-04] MEDS ORDERED: Atorvastatin Calcium 40 MG TAB PO SCH (21:00)
[2019-09-05] MEDS: cloNIDine 0.1 MG TAB PO SCH (04:30)
[2019-09-05 04:44] LABS: #Eosinphils 0.1 thou/uL (0.0-0.7); #Monocytes 0.4 thou/uL (0.11-0.59); #Neutrophils 4.3 thou/uL (1.40-6.50); %Basophils 0.1 % (0.0-1.0); %Eosinophils 2.2 % (0.0-10.0); %Lymphocytes 16.7 % (21.0-51.0); %Monocytes 7.2 % (0.0-10.0); %Neutrophils 73.8 % (42.0-75.0); Hemoglobin 11.5 g/dL (14.0-18.0); Mean Corpuscular HGB CONC 32.6 g/dL (32.0-36.0); Mean Corpuscular Hemoglobin 31.1 pg (27.0-31.0); Mean Corpuscular Volume 95.4 fL (78.0-98.0); Mean Platelet Volume 9.6 fL (7.4-10.4); Platelet Count 147 thou/uL (130-400); RBC Distribution Width 15.7 % (11.5-14.5); Red Blood Cell (RBC) Count 3.71 mill/uL (4.70-6.10); White Blood Cell (WBC) Count 5.8 thou/uL (4.8-10.8)
[2019-09-05 05:07] LABS: ALT (SGPT) 18 U/L (8-55); AST (SGOT) 20 U/L (5-34); Albumin 3.2 g/dL (3.5-5.0); Alkaline Phosphatase 73 U/L (40-110); Anion Gap 16 mmol/L (10-20); BUN (Urea Nitrogen) 43 mg/dL (8.9-20.6); Bilirubin, Total 0.5 mg/dL (0.2-1.2); Calc. Creatinine Clearance 19 mL/min (70-130); Carbon Dioxide 26 mmol/L (22-29); Chloride 99 mmol/L (98-107); Estimated GFR-MDRD 11; Globulin 2.6 g/dL (2.4-3.5); Glucose 180 mg/dL (70-105); Potassium 4.3 mmol/L (3.5-5.1); Protein, Total 5.8 g/dL (6.0-8.3); Sodium 137 mmol/L (136-145)
--- NOTE | 2019-09-05 06:00 | PDOC.FM ---
- Subjective Subjective: Pt states he did well overnight. He denies chest pain, SOB, nausea, or abdominal pain. He states that he is feeling good. - Objective MAR Reviewed: Yes Vital Signs & Weight: Vital Signs (12 hours) Temp Pulse Resp BP BP Pulse Ox 09/05/19 04:30 223/109 H 09/05/19 04:26 98.3 F 88 17 223/109 H 97 09/05/19 04:08 77 130/77 98 09/05/19 04:03 78 134/80 98 09/05/19 01:00 70 233/112 H 09/04/19 23:00 98.4 F 83 16 176/95 H 97 09/04/19 20:40 88 172/86 H 09/04/19 20:39 172/86 H 09/04/19 20:36 98.2 F 88 20 172/86 H 98 Weight Admit Weight 99.201 kg Weight 99.201 kg I&O: 09/03/19 09/04/19 09/05/19 06:59 06:59 06:59 Intake Total 240 Balance 240 Result Diagrams: 09/05/19 04:25 09/05/19 04:25 Phys Exam - Physical Examination Constitutional: NAD HEENT: moist MMs Neck: no JVD Respiratory: no wheezing Mild crackles, much improved Cardiovascular: RRR, no significant murmur Gastrointestinal: soft, non-tender, no distention, positive bowel sounds PD drain in place Musculoskeletal: pulses present, edema present (mild) Neurological: moves all 4 limbs Psychiatric: A&O x 3 Skin: cap refill <2 seconds Dx/Plan (1) ESRD (end stage renal disease) Code(s): N18.6 - END STAGE RENAL DISEASE Status: Acute (2) Elevated troponin Code(s): R79.89 - OTHER SPECIFIED ABNORMAL FINDINGS OF BLOOD CHEMISTRY Status : Acute (3) Hyperkalemia Code(s): E87.5 - HYPERKALEMIA Status: Acute (4) Hypertensive urgency Code(s): I16.0 - HYPERTENSIVE URGENCY Status: Acute (5) CHAITANYA (acute kidney injury) Code(s): N17.9 - ACUTE KIDNEY FAILURE, UNSPECIFIED Status: Acute (6) Diabetes mellitus type 2 in obese Code(s): E11.9 - TYPE 2 DIABETES MELLITUS WITHOUT COMPLICATIONS; E66.9 - OBESITY , UNSPECIFIED Status: Acute (7) Normocytic anemia Code(s): D64.9 - ANEMIA, UNSPECIFIED Status: Acute (8) Coronary artery disease involving coronary bypass graft Code(s): I25.810 - ATHEROSCLEROSIS OF CABG W/O ANGINA PECTORIS Status: Chronic Qualifiers: Crow vs. transplanted heart: yocha dehe heart - Plan Plan: This is a 48 yo male with a pmh of COPD, HTN, ESRD, CAD, CVAx2 ESRD on PD, converting to HD -Dr. 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 Haile DM2 -Hypoglycemic overnight, will adjust insulin regimen, likely due to controlled diet -Hypo/hyperglycemic protocol -ACHS accuchecks HLD -High-intensity statin CAD -As above
[2019-09-05] MEDS ORDERED: Labetalol HCl 100 MG/20 ML VIAL SLOW IVP PRN (06:04)
[2019-09-05 07:49] VITALS: TEMP 97.9
--- NOTE | 2019-09-05 09:13 | PRG ---
DATE OF SERVICE: 09/05/2019 SERVICE: Renal Medicine. SUBJECTIVE: Mr. Wood is a 48-year-old black male with ESRD and currently on maintenance hemodialysis. He was initiated on peritoneal dialysis, but he did not tolerate the PD. He was always complaining of shortness of breath and abdominal fullness. For this reason, he will be converted back to hemodialysis. He is currently undergoing hemodialysis. We made arrangements for outpatient hemodialysis with this patient already. No new complaints. No chest pain or shortness of breath. OBJECTIVE: VITAL SIGNS: Blood pressure 175/88, heart rate 67, respiratory rate 12, temperature 97.9, and pulse ox 98%. GENERAL: Noted to be awake, alert, comfortable, not in distress. SKIN: Adequate turgor. HEENT: He has pinkish conjunctivae. Anicteric sclerae. No neck mass. No carotid bruits. No JVD. CHEST: No deformities. LUNGS: Clear breath sounds. HEART: Normal sinus rhythm. No murmur. No gallops or rubs. ABDOMEN: Globular, soft, nontender. No masses. EXTREMITIES: No edema. No deformities. MEDICATIONS: Medications of September 05, 2019, were reviewed. LABORATORY DATA: Laboratories of September 05, 2019, sodium 137, potassium 4.3, chloride 99, carbon dioxide 26, BUN 43, creatinine 6.77, glucose 180, and calcium 8.0. LFTs normal. ASSESSMENT AND PLAN: 1. End-stage renal disease stable, undergoing hemodialysis, attempting 3.5 L fluid removal as tolerated by the patient. 2. Hypertension. Continue current BP medications. The patient is okay for discharge. Job ID: [id number]
[2019-09-05] MEDS ORDERED: Heparin 10,000 UNITS/ 10 ML VIAL ONE (09:30)
--- NOTE | 2019-09-05 10:25 | PRG ---
DATE OF SERVICE: 09/05/2019 Mr. Wood is currently in dialysis and tolerating this well. According to Dr. Haile, he can be discharged after finishing today's dialysis. Job ID: [id number]
[2019-09-05] MEDS: hydrALAZINE 10 MG TAB PO SCH ×2 (12:30→12:42)
[2019-09-05] MEDS: Heparin 5,000 UNITS/ML VIAL SC SCH (12:30)
[2019-09-05] MEDS: Carvedilol 6.25 MG TAB PO SCH ×2 (12:30→12:42)
[2019-09-05] MEDS: Ferrous Sulfate 325 MG TAB PO SCH (12:41)
[2019-09-05] MEDS: Isosorbide Mononitrate 20 MG TAB PO SCH (12:41)
[2019-09-05] MEDS: Aspirin 81 mg Enteric Coated Tablet PO SCH (12:41)
[2019-09-05 14:08] VITALS: BP 171/89
--- NOTE | 2019-09-08 09:38 | PQF ---
YULIYA ADAMS IRVIN [id number] [facility] [id number] CLINICAL DOCUMENTATION CLARIFICATION FORM: POST DISCHARGE Addendum to original discharge summary date: ____ Late entry note date: __ DATE: 09/08/2019 ATTN:CRISSY BECKER Please exercise your independent, professional judgment in responding to the clarification form. Clinical indicators are provided on the bottom of this form for your review Please check appropriate box(s): HEART FAILURE: A. TYPE: [ ] Systolic / HFrEF [ ] Diastolic / HFpEF [ ] Combined Systolic / Diastolic B. ACUITY [ ] Acute [ ] Acute on Chronic [ ] Chronic [ ] Other diagnosis [ ] Unable to determine For continuity of documentation, please document condition throughout progress notes and discharge summary. Thank You. CLINICAL INDICATORS - SIGNS / SYMPTOMS / LABS - Complaining of SOB-Progress note, 09/05, Ruiz Grigsby MD - Congestive heart failure-Consultation report, 09/04-Ruiz Grigsby MD - Chest Xray shows CHF -Consultation report, 09/04-Ruiz Grigsby MD - Slightly fluid overload and is currently in dialysis-Progress note, 09/04, CRISSY BECKER RISKS: - End stage renal disease- Progress note, 09/05, Ruiz Grigsby MD - Hypertension-Progress note, 09/05, Ruiz Grigsby MD TREATMENTS: -Dialysis-09/04 (This form is maintained as a part of the permanent medical record) 2014 [employer]. All Rights Reserved Fredy Navarrete [not provided] [not provided] [facility]
== END 2019-09-05 12:48 | disposition home or self-care (01) | DRG 640 ==
LOC: ERS 18:54 → 2SW 23:00 → OBSVTOIN 09-04 02:37
PROVIDERS: ADMIT Family Medicine; ATTEND Family Medicine
DX: E87.5 Hyperkalemia (principal); N18.6 End stage renal disease; N17.9 Acute kidney failure, unspecified; I12.0 Hypertensive chronic kidney disease with stage 5 chronic kidney disease or end stage renal disease; E11.21 Type 2 diabetes mellitus with diabetic nephropathy; E11.22 Type 2 diabetes mellitus with diabetic chronic kidney disease; I25.10 Atherosclerotic heart disease of native coronary artery without angina pectoris; R79.89 Other specified abnormal findings of blood chemistry; I16.0 Hypertensive urgency; E78.2 Mixed hyperlipidemia; Z99.2 Dependence on renal dialysis; Z95.1 Presence of aortocoronary bypass graft; Z79.4 Long term (current) use of insulin; Z86.73 Personal history of transient ischemic attack (TIA), and cerebral infarction without residual deficits
CPT/HCPCS: 36415; 36416; 71045; 80053; 80061; 82553; 83735; 83880; 84100; 84484; 85025; 87340; 90935; 90945; 93005; 96374; G0257; J0360; J1644; J1815; J1940

== ENCOUNTER 2019-09-10 07:36 | Day surgery (SDC) | payer MEDICARE ==
[2019-09-09 13:50] VITALS: BMI 30.1
[2019-09-10] MEDS ORDERED: Bupivacaine HCl 0.5%/Epinephrine 1:200,000/PF 30 ml Vial ONE ×2 (08:46→09:21)
[2019-09-10] MEDS ORDERED: Lidocaine 2% PF 5 ML VIAL ONE (08:46)
[2019-09-10 09:00] LABS: #Eosinphils 0.2 thou/uL (0.0-0.7); #Lymphocytes 1.5 thou/uL (1.20-3.40); #Monocytes 0.5 thou/uL (0.11-0.59); #Neutrophils 3.9 thou/uL (1.40-6.50); %Basophils 0.4 % (0.0-1.0); %Eosinophils 4.1 % (0.0-10.0); %Lymphocytes 23.8 % (21.0-51.0); %Monocytes 8.2 % (0.0-10.0); %Neutrophils 63.5 % (42.0-75.0); Hemoglobin 11.4 g/dL (14.0-18.0); Mean Corpuscular HGB CONC 31.9 g/dL (32.0-36.0); Mean Corpuscular Hemoglobin 30.6 pg (27.0-31.0); Mean Corpuscular Volume 96.1 fL (78.0-98.0); Mean Platelet Volume 9.4 fL (7.4-10.4); Platelet Count 184 thou/uL (130-400); RBC Distribution Width 15.8 % (11.5-14.5); Red Blood Cell (RBC) Count 3.71 mill/uL (4.70-6.10); White Blood Cell (WBC) Count 6.1 thou/uL (4.8-10.8)
[2019-09-10 09:20] LABS: Anion Gap 20 mmol/L (10-20); BUN (Urea Nitrogen) 84 mg/dL (8.9-20.6); Calc. Creatinine Clearance 11 mL/min (70-130); Calcium 8.4 mg/dL (7.8-10.44); Carbon Dioxide 23 mmol/L (22-29); Chloride 107 mmol/L (98-107); Estimated GFR-MDRD 6; Glucose 160 mg/dL (70-105); Potassium 5.1 mmol/L (3.5-5.1); Sodium 145 mmol/L (136-145)
[2019-09-10] MEDS ORDERED: Fentanyl 100 MCG/2 ML VIAL ONE (09:38)
[2019-09-10] MEDS ORDERED: Heparin 10,000 UNITS/ 10 ML VIAL ONE ×2 (10:00→17:24)
--- NOTE | 2019-09-10 10:05 | HP ---
HISTORY OF PRESENT ILLNESS: James Wood is a 48-year-old male patient followed by Dr. Keegan Haile, Nephrology, Dr. Hart, Cardiology at [facility] [place], dialyzes Sunday, Sunday, and Sunday, at 0500 at [facility]. The patient has a history of hypertension, diabetes mellitus, and coronary artery disease. He has had a left radial artery harvest for coronary bypass grafting. I have been asked to see him regarding peritoneal dialysis catheter placement and dialysis access. Vein mapping has not been obtained. He is right-handed. He reports he was recently in [place], undergoing transplant workup in [facility]. He had a stress test that was abnormal. He states he has had blood pressure issues at that time. He has an appointment to see a courier delivery driver in [place] in 2 weeks. SOCIAL HISTORY: Tobacco, none. Alcohol, none. MEDICATIONS: 1. Carvedilol. 2. Clonidine. 3. Hydralazine. 4. Aspirin. 5. Isosorbide. 6. Levemir. ALLERGIES: TORADOL AND AMLODIPINE. PAST SURGICAL HISTORY: Coronary artery bypass grafting in 2016, four vessels, left radial artery, left saphenous vein, colostomy, colonoscopy earlier this year in 2019, normal. Abnormal stress test as noted above recently. REVIEW OF SYSTEMS: Ten-point noncontributory, symptomatic, no cardiac symptoms. PHYSICAL EXAMINATION: VITAL SIGNS: Weight 214 pounds, height 69 inches, blood pressure 194/97, heart rate 90, temperature 98.6 degrees. HEAD, EARS, EYES, NOSE AND THROAT: Unremarkable. LUNGS: Clear to auscultation. CARDIAC: Regular rate and rhythm without murmur or gallop. ABDOMEN: Soft and nontender. No hernias. Examined standing. No scrotal hernias. No inguinal hernias. Testicles normal. No umbilical hernia. EXTREMITIES: Unremarkable. Scar from left radial artery harvest. Scars left leg from saphenous vein harvest. Sternotomy scar, chest. Palpable radial and ulnar pulses, right. Nonpalpable radial pulses, left. ASSESSMENT AND PLAN: 1. End-stage renal disease, on maintenance dialysis Sunday, Sunday, and Sunday at 0500 at [facility]. We would recommend laparoscopic peritoneal dialysis catheter, and aspiration of the right arm for fistula. He understands risks and benefits of procedure and consents. We will plan this under general anesthesia after cardiac clearance. 2. Insulin-dependent diabetes mellitus. 3. Hypertension. 4. Asymptomatic coronary artery disease. Job ID: [id number]
[2019-09-10] MEDS ORDERED: Propofol 500 MG/50 ML VIAL ONE (10:11)
[2019-09-10] MEDS ORDERED: PROPOFOL 200 MG/20 ML VIAL ONE (10:19)
--- NOTE | 2019-09-10 11:21 | OP ---
DATE OF PROCEDURE: 09/10/2019 PREOPERATIVE DIAGNOSES: Mechanically functional peritoneal dialysis catheter, but patient unable to tolerate peritoneal dialysis, end-stage renal disease, history of left radial artery harvest for coronary artery bypass grafting, right arm fistula a month ago outflow cephalic vein only. ANESTHESIA: TIVA, local of 0.5% Marcaine with epinephrine 30 mL mixed with 2% Xylocaine 10 mL. DESCRIPTION OF PROCEDURE: The patient was taken to the operating room where under intravenous sedation, abdomen and PD catheter prepared with ChloraPrep and draped in routine fashion. PD catheter transected, dissected free, both cuffs free, catheter removed intact, discarded. Gauze dressing placed in the wound. The patient tolerated the procedure well. The patient has not dialyzed in a week. He attends [employer] 5:00 p.m. to 10:00 p.m. He is not able to reliably make his 5:00 a.m. dialysis and they gave of his at 05:00 a.m. chair. They offered him a 05:00 p.m. chair, but he did not want to miss his college courses. He will be admitted postoperatively for outpatient dialysis using his hemodialysis catheter and then Dr. Haile will work out outpatient dialysis. Job ID: [id number]
--- NOTE | 2019-09-10 16:19 | PRG ---
DATE OF SERVICE: 09/10/2019 SUBJECTIVE: Mr. Wood is a 48-year-old black male with ESRD and was admitted for removal of his PD catheter. He has changed mind regarding pushing the peritoneal dialysis. He wants to be on hemodialysis. The patient has missed his dialysis for the last several days. For this reason, he is undergoing hemodialysis. We are attempting 3.5 L fluid removal as tolerated. We are doing a 4-hour hemodialysis. He seems to be tolerating the treatment at the present time. OBJECTIVE: VITAL SIGNS: Blood pressure is 140/70 and heart rate 70. GENERAL: Awake, alert, and comfortable, not in distress. SKIN: Adequate turgor. HEENT: He has pinkish conjunctivae. Anicteric sclerae. NECK: No neck mass. No carotid bruits. No JVD. CHEST: No deformities. LUNGS: Clear breath sounds. No wheezing. No crackles. HEART: Normal sinus rhythm. No murmur. No gallops. No rubs. ABDOMEN: Globular, soft, and nontender. No masses. EXTREMITIES: No edema. No deformities. LABORATORY DATA: On 09/10/2019: Sodium 145, potassium 5.1, chloride 107, carbon dioxide 23, BUN is 84, creatinine 10.9, glucose 160, and calcium 8.4. White count 6.1 and hemoglobin 11.4. ASSESSMENT AND PLAN: End-stage renal disease. Continue current hemodialysis regimen. We will do hemodialysis for 4 hours. He will then be discharged. He will be following up with his outpatient dialysis unit. Please note that the PD catheter has been pulled out by Dr. Olea. He will continue his hemodialysis regimen. Job ID: [id number]
[2019-09-10] MEDS ORDERED: hydrALAZINE 20 MG/ML VIAL ONE (17:14)
[2019-09-10] MEDS ORDERED: Sodium Chloride 0.9% 20 ML ONE (17:22)
== END 2019-09-10 18:20 | disposition home or self-care (01) ==
LOC: SDC 07:36
PROVIDERS: ATTEND Specialist
PROC: 0WPG03Z Removal of Infusion Device from Peritoneal Cavity, Open Approach (ICD-10-PCS; principal; 2019-09-10)
DX: I12.0 Hypertensive chronic kidney disease with stage 5 chronic kidney disease or end stage renal disease (principal); E11.22 Type 2 diabetes mellitus with diabetic chronic kidney disease; N18.6 End stage renal disease; E78.00 Pure hypercholesterolemia, unspecified; I25.10 Atherosclerotic heart disease of native coronary artery without angina pectoris; Z79.4 Long term (current) use of insulin; Z88.6 Allergy status to analgesic agent; Z88.8 Allergy status to other drugs, medicaments and biological substances; Z95.1 Presence of aortocoronary bypass graft; Z99.2 Dependence on renal dialysis
CPT/HCPCS: 80048; 85025; J0360; J0670; J0690; J1644; J2001; J2704; J3010

== ENCOUNTER 2019-11-18 06:57 | Day surgery (SDC) | payer MEDICARE ==
[2019-11-17 15:07] VITALS: BMI 30.5
[~2019-11-18 06:57] MED LIST: FLU VACC QS2019-20(6MOS UP)/PF 60 MCG/0.5 ML SYRINGE IM ONE
[2019-11-18 08:19] VITALS: BP 110/74; TEMP 98.4
--- NOTE | 2019-11-18 09:26 | SPC ---
EXAM: [facility] CATH DIAL[facility] CIRC/AV S PROVIDED CLINICAL HISTORY: Non maturing right upper extremity arteriovenous dialysis fistula in a patient with end-stage renal d isease. COMPARISON: None TECHNIQUE: After informed consent was obtained, the patient was placed on the angiography table in the supine po sition. Limited sonographic evaluation of the right upper extremity was performed. The right upper extremity was then meticulously prepped and draped in usual sterile fashion. The skin and subcutaneous tissues were infiltrated with buffered 1% lidocaine for local anesthesia at the level of the antecubital fossa at the intended puncture site. The fistula was accessed in the venous direction utilizing micropuncture technique, and a 4 [place] introducer sheath was placed. A fi stulogram and venogram to the SVC were performed. A blood pressure cuff was applied to the upper arm, and contrast was injected to reflux the arteriovenous anastomosis. There are 2 prominent collate ral veins located along the proximal venous outflow at the level of the proximal humeral diaphysis. The largest collateral near the antecubital fossa was marked. A second collateral is located approxim ately 3.3 cm from the larger collateral at the level of the mid diaphysis of the humerus. Introducer sheath was removed, and hemostasis was achieved with direct pressure. The patient tolerate d the procedure well and without immediate complication. Patient was transported to radiology nurses holding for further monitoring prior to discharge. Fluoroscopy: Time-0.7 minutes Dose-13,216 mGy centimeter squared FINDINGS: Right upper extremity arteriovenous dialysis fistulogram with cephalic vein outflow. The right upper extremity arteriovenous dialysis fistula and venous outflow are patent. However, there is a tunneled right internal jugular vein hemodialysis catheter noted in place which does result in lumina l narrowing and difficulty evaluating the region of the innominate vein. However, there is brisk flow and washout seen throughout the fistula. There are 2 prominent collateral vessels involving the venous outflow at the level of the diaphysis of the humerus. The larger collateral just proximal to the level of the antecubital fossa was marked on the skin surface. The arteriovenous anastomosis is patent. No focal stenosis is seen along the venous outflow. IMPRESSION: 1. Patent right upper extremity arteriovenous dialysis fistula with venous outflow via the cephalic v ein. 2. Two prominent collaterals involving the proximal venous outflow. 3. Right internal jugular vein tunneled hemodialysis catheter in place which limits evaluation of the innominate vein.
[2019-11-18] MEDS ORDERED: Heparin 1,000 UNITS/ML VIAL ONE (13:50)
[2019-11-18] MEDS ORDERED: Iopamidol 300 61% 100 ML VIAL FS ONE (15:36)
== END 2019-11-18 09:15 | disposition home or self-care (01) ==
LOC: SPEC 06:57
PROVIDERS: ATTEND Specialist
DX: I13.2 Hypertensive heart and chronic kidney disease with heart failure and with stage 5 chronic kidney disease, or end stage renal disease (principal); E11.22 Type 2 diabetes mellitus with diabetic chronic kidney disease; N18.6 End stage renal disease; I50.9 Heart failure, unspecified; I42.9 Cardiomyopathy, unspecified; E78.5 Hyperlipidemia, unspecified; I25.10 Atherosclerotic heart disease of native coronary artery without angina pectoris; M19.90 Unspecified osteoarthritis, unspecified site; L40.9 Psoriasis, unspecified; I25.2 Old myocardial infarction; Z79.82 Long term (current) use of aspirin; Z79.899 Other long term (current) drug therapy; Z88.6 Allergy status to analgesic agent; Z88.8 Allergy status to other drugs, medicaments and biological substances; Z95.1 Presence of aortocoronary bypass graft; Z99.2 Dependence on renal dialysis
CPT/HCPCS: 36901

== ENCOUNTER 2020-05-04 15:11 | Observation (INO) | payer MEDICARE ==
--- NOTE | 2020-05-04 15:41 | RAD ---
EXAM: CHEST ONE VIEW HISTORY: Chest pain. Near syncope, dizziness. Patient on dialysis. COMPARISON: 09/03/2019 FINDINGS: Right-sided hemodialysis catheter has been removed. Postoperative changes related to CABG are again s een. Cardiac silhouette is magnified by projection but stable in size and does appear mildly enlarged. The pulmonary vasculature is within normal limits. Mild elevation right hemidiaphragm is ag ain seen. Lungs are otherwise clear. No other interval change IMPRESSION: No acute cardiopulmonary process.
[2020-05-04 15:43] LABS: #Eosinphils 0.2 thou/uL (0.0-0.7); #Lymphocytes 1.6 thou/uL (1.20-3.40); #Monocytes 0.6 thou/uL (0.11-0.59); #Neutrophils 7.1 thou/uL (1.40-6.50); %Basophils 0.5 % (0.0-1.0); %Eosinophils 1.8 % (0.0-10.0); %Lymphocytes 16.3 % (21.0-51.0); %Monocytes 6.6 % (0.0-10.0); %Neutrophils 74.8 % (42.0-75.0); Hemoglobin 11.3 g/dL (14.0-18.0); Mean Corpuscular Hemoglobin 30.7 pg (27.0-31.0); Mean Corpuscular Volume 95.8 fL (78.0-98.0); Mean Platelet Volume 9.6 fL (7.4-10.4); Platelet Count 191 thou/uL (130-400); RBC Distribution Width 18.1 % (11.5-14.5); Red Blood Cell (RBC) Count 3.69 mill/uL (4.70-6.10); White Blood Cell (WBC) Count 9.5 thou/uL (4.8-10.8)
[2020-05-04 16:28] LABS: CKMB 41.5 ng/mL (0-6.6)
[2020-05-04 16:29] LABS: ALT (SGPT) 29 U/L (8-55); AST (SGOT) 22 U/L (5-34); Albumin 3.6 g/dL (3.5-5.0); Alkaline Phosphatase 67 U/L (40-110); Anion Gap 17 mmol/L (10-20); BUN (Urea Nitrogen) 50 mg/dL (8.9-20.6); Bilirubin, Total 0.6 mg/dL (0.2-1.2); CK (CPK) 455 U/L (30-200); Calc. Creatinine Clearance 0 mL/min (70-130); Calcium 10.1 mg/dL (7.8-10.44); Carbon Dioxide 30 mmol/L (22-29); Chloride 97 mmol/L (98-107); Estimated GFR-MDRD 11; Globulin 3.2 g/dL (2.4-3.5); Glucose 232 mg/dL (70-105); Magnesium 2.2 mg/dL (1.6-2.6); Potassium 5.4 mmol/L (3.5-5.1); Protein, Total 6.8 g/dL (6.0-8.3); Sodium 139 mmol/L (136-145)
[2020-05-04] MEDS ORDERED: Aspirin 81 mg Enteric Coated Tablet PO SCH (18:00)
[2020-05-04] MEDS ORDERED: HumaLOG 300 UNITS/3 ML VIAL SC PRN ×2 (18:00)
[2020-05-04] MEDS ORDERED: Dextrose 5% in Water 1,000 ML IV PRN (18:00)
[2020-05-04] MEDS ORDERED: Dextrose 50% Abboject 50 ML SYRINGE SLOW IVP PRN (18:00)
[2020-05-04] MEDS ORDERED: Calcium Carbonate 500 MG ChewTAB PO PRN (18:02)
[2020-05-04] MEDS ORDERED: Ondansetron ODT 4 MG TAB PO PRN (18:02)
[2020-05-04] MEDS ORDERED: Senokot S 8.6-50 MG TAB PO PRN (18:02)
[2020-05-04] MEDS ORDERED: Acetaminophen 325 MG TAB PO PRN (18:02)
[2020-05-04 18:55] LABS: INR-International Normal Ratio 2.2; PTT 34.6 sec (22.9-36.1); Prothrombin Time 24.2 sec (12.0-14.7)
[2020-05-04 19:14] LABS: Troponin I 0.163 ng/mL (< 0.028)
[2020-05-04 19:21] VITALS: BMI 30.3
--- NOTE | 2020-05-04 19:47 | HP ---
PRIMARY CARE PHYSICIAN: Godfrey. PROCESS CONSULTANT: Dr. Summers. PROPERTY MANAGEMENT ASSISTANT: Dr. Haile. CHIEF COMPLAINT: Weakness and dizziness. HISTORY OF PRESENT ILLNESS: The patient is a 49-year-old male with a past medical history significant for quadruple bypass in 2016, hypertension, hyperlipidemia, diabetes 2, on Lantus, pulmonary embolisms, on Coumadin, and end-stage renal disease, HD on Sunday, Sunday, and Sunday, followed by Dr. Haile, who presents to the ER for the above complaints. The patient reports that after eating lunch, he stood up and became lightheaded and dizzy. He reports that he felt generally weak. He denies falling, headache or focal deficits. He thinks the problem is related to his blood pressure. He reports that his blood pressure always has been 200s over 100s. If his blood pressure is "normal", then he feels bad. He reports that his digital camera technician recently started him on hydralazine approximately 1 week ago and he reports ever since then he has been having these symptoms. He reports some associated pallor and he felt clammy. He denies any chest pain or heart palpitations. He denies any swelling to his lower extremities. He denies any recent cough or shortness of breath. He denies any recent fever or chills. He has no abdominal pain, nausea, vomiting, or diarrhea. His aunt, who is eating lunch with him called EMS. When EMS arrived, the patient's vital signs were stable with a blood pressure in the 130s over 70s. The patient was brought to the ER. Of note, the patient reports that he was recently hospitalized in February 2020 at [facility] for pulmonary emboli. He reports at that time he underwent a full cardiac workup including a stress test and an echo. He was discharged on Coumadin. In the ER, the patient's vital signs were stable. He is afebrile. He is normotensive with a blood pressure of 148/72, normal pulse, normal respirations, 94% on room air. No pain. EKG, normal sinus rhythm, 69 beats per minute. Initial troponin 0.171, CK-MB was 41.5, CPK was 455. Chest x-ray was negative for any acute process. The patient's potassium was 5.4. His white count was 9.5 and his glucose was 232. The patient was given no medications in the ER. NEXT PAST MEDICAL HISTORY: 1. Hypertension. 2. Hyperlipidemia. 3. Diabetes type 2, on long-acting insulin. 4. Pulmonary embolisms in February 2020, on Coumadin. 5. End-stage renal disease, on Sunday, Sunday, Sunday, followed by Dr. Haile. PAST SURGICAL HISTORY: 1. CABG x4 in 2016. 2. Right upper extremity AV fistula. SOCIAL HISTORY: The patient lives alone at home. He has no history of smoking, alcohol intake, or illicit drug use. He ambulates without any assistive devices. FAMILY HISTORY: Contributory for cardiac disease and contributory for diabetes. ALLERGIES: 1. TORADOL. 2. AMLODIPINE. HOME MEDICATIONS: 1. Coreg 25 mg p.o. b.i.d. 2. Hydralazine 25 mg p.o. b.i.d. 3. Clonidine 0.2 mg p.o. b.i.d. 4. Isosorbide mononitrate 20 mg p.o. daily. 5. Lasix 40 mg p.o. b.i.d. 6. Pravastatin 40 mg p.o. at bedtime. 7. Coumadin 5 mg p.o. at bedtime. 8. Aspirin 81 mg p.o. daily. REVIEW OF SYSTEMS: All review of systems are negative unless otherwise stated in the history of present illness. PHYSICAL EXAMINATION: VITAL SIGNS: Temperature 98.4, blood pressure 148/72, pulse 72, respirations 20 , SpO2 of 94% on room air, and 0 to 10 pain. CONSTITUTIONAL: The patient is alert and oriented to person, place, and time. No acute distress. Comfortable in appearance. HEAD: Atraumatic, normocephalic. EYES: PERRLA. Extraocular muscles intact. ENT: EACs clear bilaterally. TMs intact bilaterally. Nares patent bilaterally. Oropharynx is clear. Uvula midline. Moist mucous membranes. No oral lesions. NECK: Supple. Trachea is midline. There is no JVD. No cervical adenopathy. Full range of motion. No cervical spinal tenderness. RESPIRATORY/CHEST: Respirations are even and nonlabored. No rhonchi, wheezes, or rales. CARDIAC: Regular rate and rhythm. There is a 3/6 murmur. No rubs or gallops. ABDOMEN: Soft, nontender, mildly distended. Active bowel sounds. No guarding or rigidity. No rebound tenderness. No abdominal bruit auscultated. Negative Main sign. Negative Rovsing sign. BACK: No cervical spinous tenderness. Full range of motion. No CVA tenderness. EXTREMITIES: Upper extremities, full range of motion. Strength normal. Sensation intact. Palpable radial pulses. Right upper extremity has an AV fistula with a palpable thrill and auscultated bruit. Lower extremities, full range of motion. Strength normal. Sensation intact. Palpable pedal pulses. No swelling. No edema. NEUROLOGICAL: The patient is alert and oriented to person, place, and time. No focal deficits. Moves all extremities well. Normal gait. PSYCHIATRIC: The patient has normal affect. Oriented to person, place, and time. LABS AND DIAGNOSTICS: EKG, normal sinus rhythm, 69. Chest x-ray is negative for any acute process. Initial troponin 0.171, CK-MB 41.5, CPK 455. Sodium 139, potassium 5.4, chloride 97, CO2 is 30, BUN 50, creatinine 6.32, blood sugar 232, magnesium 2.2, total bilirubin 0.6, AST 22, ALT 29, alkaline phosphatase 67, albumin 3.6. WBCs 9.5, hemoglobin 11.3, hematocrit 35.3, platelets 191. IMPRESSION AND PLAN: 1. Near syncope. We will admit the patient to telemetry for observation status. Expected length of stay, less than 2 midnights. The patient presented for near syncopal episode with pallor and diaphoresis. He was found to have normal vital signs, normal EKG, normal chest x-ray. The patient presented with a troponin 0.171. His last reading was 0.056 in August 2019. He has a HEART score of 7, high risk, so we will continue to trend troponins. We will order BNP, TSH. We will order PT/INR baseline. We will order a fasting lipid. We will get a carotid Doppler ultrasound. We will check orthostatics vital signs in the a.m. We will give the patient full dose aspirin and restart his home dose of baby aspirin in the a.m. 2. Hyperkalemia. The patient presented with a potassium of 5.4, mild. EKG was normal sinus rhythm and had T-waves flattened with a slightly prolonged QT interval. The patient did not have any chest pain or shortness of breath. We will continue cardiac monitoring. We will recheck level in the a.m. 3. Diabetes type 2. The patient is on Levemir 10 units as needed. The patient presented with a blood glucose of 232. We will restart long-acting insulin when home medications reconciled by nursing. We will start moderate sliding scale with Accu-Cheks a.c. and at bedtime. 4. Hypertension. The patient reports normal blood pressures are systolic 200s and diastolics in the 100s when he has "normal blood pressure" he feels sick. His digital camera technician recently started him on hydralazine 25 mg b.i.d. a week ago since he has been feeling "bad" and it is related to his blood pressures being in the normal range. We will restart the patient's home dose of Coreg, clonidine, isosorbide mononitrate, and Lasix. We will hold hydralazine for now and we will continue to monitor blood pressures. 5. Hyperlipidemia. The patient takes pravastatin 40 mg at night. We will restart when home medications are reconciled. 6. End-stage renal disease. The patient does dialysis on Sunday, Sunday, and Sunday. Last service was on Sunday. Chest x-ray is negative for any fluid volume overload. We will consult Dr. Haile to schedule dialysis. 7. Pulmonary embolism. The patient was diagnosed with pulmonary embolism in February 2020 at [facility]. He is currently on Coumadin 5 mg at night. He says that he is supposed to be on that until September when he is re-evaluated. He was told that they believe it is secondary to his right AV fistula clotting. The patient denies any chest pain or shortness of breath. Heart rate was normal sinus rhythm, 69 beats per minute. We will continue the patient's Coumadin. We will get a baseline PT/INR. 8. No DVT prophylaxis. Pantoprazole for gastrointestinal prophylaxis. The patient is a full code. His contact is Lolis Wood, [phone]. 9. Discussed the case with Dr. Fagan. Job ID: [id number] [id number]
[2020-05-04] MEDS ORDERED: Non-Formulary Item 1 EACH (Insulin Detemir 100 Units/Ml [Levemir] 45 UNITS) SC PRN (22:19)
[2020-05-04 22:26] LABS: Troponin I 0.137 ng/mL (< 0.028)
[2020-05-04] MEDS ORDERED: Carvedilol 25 MG TAB PO SCH (22:30)
[2020-05-04] MEDS ORDERED: cloNIDine 0.2 MG TAB PO SCH (22:30)
[2020-05-04] MEDS ORDERED: Atorvastatin Calcium 10 MG TAB PO SCH (22:30)
[2020-05-04] MEDS ORDERED: Warfarin Sodium 5 MG TAB PO SCH (22:30)
--- NOTE | 2020-05-04 23:00 | ULT ---
BILATERAL CAROTID DUPLEX ULTRASOUND: HISTORY: Near syncopal episode TECHNIQUE: Grayscale, color-flow and spectral Doppler ultrasound imaging of the extracranial carotid artery syst ems and vertebral arteries was performed bilaterally. FINDINGS: There are multiple complex and simple cystic nodules involving the right and left thyroid gland which is incompletely evaluated on the current study. The peak systolic velocity in the right ICA measures 52.2 cm/s. The peak systolic velocity in the ri ght CCA measures 83.2 cm/s. The peak systolic velocity in the left ICA measures 62.5 cm/s. The peak systolic velocity in the l eft CCA measures 108.6 cm/s. The right IC/CC ratio is0.63. The left IC/CC ratio is 0.58. Vertebral flow: antegrade, bilaterally. . IMPRESSION: No hemodynamically significant stenosis of Both ICAs. Bilateral thyroid nodules. Dedicated thyroid ultrasound is recommended for additional characterizatio n.
[2020-05-04 23:40] LABS: Free T4 (Free Thyroxine) 1.08 ng/dL (0.70-1.48)
[2020-05-05 04:36] LABS: #Basophils 0.1 thou/uL (0.0-0.2); #Eosinphils 0.2 thou/uL (0.0-0.7); #Lymphocytes 1.9 thou/uL (1.20-3.40); #Monocytes 0.8 thou/uL (0.11-0.59); #Neutrophils 4.6 thou/uL (1.40-6.50); %Basophils 0.8 % (0.0-1.0); %Eosinophils 2.8 % (0.0-10.0); %Lymphocytes 25.1 % (21.0-51.0); %Monocytes 10.3 % (0.0-10.0); Hemoglobin 10.2 g/dL (14.0-18.0); Mean Corpuscular HGB CONC 31.4 g/dL (32.0-36.0); Mean Corpuscular Hemoglobin 29.9 pg (27.0-31.0); Mean Corpuscular Volume 95.5 fL (78.0-98.0); Mean Platelet Volume 9.8 fL (7.4-10.4); Platelet Count 189 thou/uL (130-400); RBC Distribution Width 18.2 % (11.5-14.5); Red Blood Cell (RBC) Count 3.42 mill/uL (4.70-6.10); White Blood Cell (WBC) Count 7.6 thou/uL (4.8-10.8)
[2020-05-05 04:55] LABS: Anion Gap 17 mmol/L (10-20); BUN (Urea Nitrogen) 67 mg/dL (8.9-20.6); Calc. Creatinine Clearance 16 mL/min (70-130); Calcium 9.8 mg/dL (7.8-10.44); Carbon Dioxide 29 mmol/L (22-29); Cardiac Risk 2.9 (Less than 4.5); Chloride 98 mmol/L (98-107); Cholesterol 117 mg/dl (< 200 Desired); Estimated GFR-MDRD 10; Glucose 230 mg/dL (70-105); HDL Cholesterol 41 mg/dL (>60 Neg Risk); LDL Cholesterol, Calculated 54 mg/dL; Potassium 4.8 mmol/L (3.5-5.1); Sodium 139 mmol/L (136-145); Triglycerides 111 mg/dL (Less than 150)
[2020-05-05] MEDS ORDERED: Ferrous Sulfate 325 MG TAB PO SCH (08:00)
[2020-05-05] MEDS ORDERED: Carvedilol 25 MG TAB PO SCH (08:00)
[2020-05-05] MEDS ORDERED: Aspirin 81 mg Enteric Coated Tablet PO SCH ×2 (09:00)
[2020-05-05] MEDS ORDERED: Insulin Glargine 45 UNITS in Pre-Filled Syringe 1 EACH SC SCH (09:00)
[2020-05-05] MEDS ORDERED: cloNIDine 0.2 MG TAB PO SCH (09:00)
[2020-05-05] MEDS ORDERED: Epoetin (ESRD) 20,000 UNITS/ML SC SCH (09:30)
[2020-05-05] MEDS ORDERED: EPOETIN ALFA-EPBX (ESRD) 4,000 UNIT/ML VIAL SC SCH (12:00)
[2020-05-05] MEDS ORDERED: Sevelamer Carbonate 800 MG TAB PO SCH (12:00)
--- NOTE | 2020-05-05 13:33 | CON ---
DATE OF CONSULTATION: 05/05/2020 HISTORY OF PRESENT ILLNESS: Mr. Wood is a 49-year-old black male with history of ESRD and admitted for near syncopal episode. We are being consulted for management of his ESRD. The patient is currently undergoing hemodialysis at the present time. REVIEW OF SYSTEMS: Positive for dizziness. Positive for near syncopal episode. No chest pain. No shortness of breath. No nausea. No vomiting. Appetite and energy level are fair. No gross hematuria. No dysuria. No hematochezia. No melena. No abdominal pain. No chest pain. No fever or chills. No joint pains. No diplopia. MEDICATIONS: Currently on the following medicines: 1. Coumadin as directed. 2. Aspirin 81 mg daily. 3. Atorvastatin 10 mg tablet nightly. 4. Calcium carbonate 1000 mg q.4 p.r.n. 5. Carvedilol 25 mg p.o. b.i.d. 6. Clonidine 0.2 mg p.o. b.i.d. 7. Ferrous sulfate 325 mg every morning. 8. Humalog sliding scale insulin. 9. Detemir 45 units subcu b.i.d. 10. Zofran 4 mg q.6h p.r.n. 11. Protonix 40 mg tablet once a day. PAST MEDICAL HISTORY: 1. Status post pulmonary embolism. 2. History of hyperlipidemia. 3. Coronary artery disease. 4. Hypertension. 5. Type 2 diabetes mellitus. 6. ESRD from diabetic nephropathy. PAST SURGICAL HISTORY: 1. Status post cardiac cath. 2. Status post AV fistula placement. 3. Status post coronary artery bypass graft. 4. Status post PD catheter placement with subsequent removal. 5. Status post cuffed hemodialysis catheter placement. SOCIAL HISTORY: The patient is single, lives in [place]. No children. Education, high school. Currently not working. No history of smoking. No alcohol intake. No IV drug abuse. Status post blood transfusion. Active lifestyle. No IV drug use. ALLERGIES: 1. KETORALAC. 2. AMLODIPINE. TRAUMA: None. IMMUNIZATIONS: Up to date. HOSPITALIZATIONS: Please see past medical history. FAMILY HISTORY: No family history of ESRD. PHYSICAL EXAMINATION: VITAL SIGNS: Blood pressure is 190/89 with a heart rate of 65, respiratory rate 18, temperature 97.7, and pulse oximetry 96%. GENERAL: The patient is awake, supine, comfortable, and not in distress. SKIN: Adequate turgor. HEENT: Slightly pale conjunctivae. Anicteric sclerae. NECK: No neck mass. No carotid bruits. No JVD. CHEST: No deformities. LUNGS: Clear breath sounds. No wheezing. No crackles. HEART: Normal sinus rhythm. No murmurs, gallops, or rubs. ABDOMEN: Globular. Soft. Nontender. No masses. EXTREMITIES: No edema. No deformities. NEUROLOGIC: Awake and oriented to 3 spheres. Moving all extremities. No tremors. No asterixis. No ataxia. DIAGNOSTIC STUDIES: Carotid Doppler negative findings. Chest x-ray of May 04, 2020, no acute cardiopulmonary process. Laboratories of May 05, 2020: White count 7.6, hemoglobin 10.2. Sodium 139, potassium 4.8, chloride 98, carbon dioxide 29, BUN 67, creatinine 7.43, calcium 9.8. Troponin I is 0.137. BNP is 807. ASSESSMENT AND PLAN: 1. End-stage renal disease, stable. We will continue current Sunday, Sunday, and Sunday hemodialysis regimen. Again, fluid removal only as tolerated. 2. Hypertension. I would suggest that we adjust the BP medications. We will be adding losartan 25 mg tablet once a day for this patient. 3. Anemia. Epogen will be started at 7500 units subcu q.7 days. 4. We will recheck PTH and phosphorus tomorrow. ADDENDUM: The patient's Kt/V when last reviewed suggests it is adequate. This suggests he is adequately dialyzed with the current dialysis regimen. Our plan is to continue the Sunday, Sunday, and Sunday dialysis. Job ID: [id number]
[2020-05-05 15:49] VITALS: BP 138/70; TEMP 97.7
[2020-05-05] MEDS ORDERED: Warfarin Sodium 5 MG TAB PO SCH (21:00)
[2020-05-05] MEDS ORDERED: Atorvastatin Calcium 10 MG TAB PO SCH (21:00)
--- NOTE | 2020-05-11 16:46 | EKG ---
Test Reason : Blood Pressure : / mmHG Vent. Rate : 069 BPM Atrial Rate : 069 BPM P-R Int : 170 ms QRS Dur : 090 ms QT Int : 456 ms P-R-T Axes : 048 066 123 degrees QTc Int : 488 ms Normal sinus rhythm Nonspecific T wave abnormality Prolonged QT Abnormal ECG Confirmed by JUANA ESCUDERO DO ([id number]), website/blog editor LIZA GUERRERO ([id number]) on 05/11/2020 4:45:24 PM Referred By: Confirmed By:JUANA ESCUDERO DO
== END 2020-05-05 16:15 | disposition home or self-care (01) ==
LOC: ERS 15:11 → 2NO 17:37
PROVIDERS: ADMIT Internal Medicine; ATTEND Internal Medicine
DX: R55 Syncope and collapse (principal); R53.1 Weakness; R42 Dizziness and giddiness; E78.5 Hyperlipidemia, unspecified; I12.0 Hypertensive chronic kidney disease with stage 5 chronic kidney disease or end stage renal disease; E11.21 Type 2 diabetes mellitus with diabetic nephropathy; E11.22 Type 2 diabetes mellitus with diabetic chronic kidney disease; N18.6 End stage renal disease; D63.1 Anemia in chronic kidney disease; E87.5 Hyperkalemia; Z79.01 Long term (current) use of anticoagulants; Z79.4 Long term (current) use of insulin; Z79.82 Long term (current) use of aspirin; Z79.899 Other long term (current) drug therapy; Z88.6 Allergy status to analgesic agent; Z88.8 Allergy status to other drugs, medicaments and biological substances; Z95.1 Presence of aortocoronary bypass graft; Z99.2 Dependence on renal dialysis
CPT/HCPCS: 71045; 80048; 80061; 82550; 82553; 82962 ×2; 83735; 83880; 84439; 84481; 84484 ×2; 85025; 85610; 85730; 93005; 93880; 94760; 96372; 97139; 99285; G0378 ×3; Q5105; 36415; 36416; 80053; 84443; 90935; G0257; J1815

== ENCOUNTER 2021-11-15 16:56 | Outpatient (CLI) | payer MEDICARE ==
[2021-11-15 18:03] LABS: Hemoglobin 10.8 g/dL (13.5-17.5); Mean Corpuscular HGB CONC 30.8 g/dL (32.0-36.0); Mean Corpuscular Hemoglobin 28.1 pg (27.0-33.0); Mean Corpuscular Volume 91.2 fl (81.2-95.1); Mean Platelet Volume 10.6 fl (7.4-10.4); Platelet Count 163 10x3/uL (150-450); RBC Distribution Width 18.1 % (11.5-14.5); Red Blood Cell (RBC) Count 3.85 10x6/uL (4.32-5.72); White Blood Cell (WBC) Count 9.6 10x3/uL (3.5-10.5)
[2021-11-15 18:13] LABS: Anion Gap 20 mmol/L (10-20); BUN (Urea Nitrogen) 57 mg/dL (8.4-25.7); Calc. Creatinine Clearance 0 mL/min (70-130); Calcium 8.9 mg/dL (7.8-10.44); Carbon Dioxide 29 mmol/L (22-29); Chloride 96 mmol/L (98-107); Glucose 124 mg/dL (70-105); Magnesium 2.2 mg/dL (1.6-2.6); Potassium 4.5 mmol/L (3.5-5.1); Sodium 140 mmol/L (136-145)
[2021-11-16 09:27] LABS: SARS-CoV-2 PCR by NAA DETECTED (NotDetected)
== END 2021-11-15 16:57 | disposition home or self-care (01) ==
LOC: LABBT 16:56
PROVIDERS: ATTEND Specialist
DX: U07.1 COVID-19 (principal); Z01.812 Encounter for preprocedural laboratory examination
CPT/HCPCS: 80048; 83735; 85027; U0003; U0005

== ENCOUNTER 2021-11-16 07:34 | Inpatient (IN) | payer MEDICARE ==
[2021-11-16] MEDS ORDERED: Fentanyl 100 MCG/2 ML VIAL ONE ×2 (09:51→12:32)
[2021-11-16] MEDS ORDERED: Iopamidol 370 76% 50 ML VIAL FS ONE (11:03)
[2021-11-16] MEDS ORDERED: Bupivacaine PF 0.5% 30 ML VIAL ONE (12:19)
[2021-11-16] MEDS ORDERED: Heparin 5,000 UNITS/ML VIAL ONE (12:19)
[2021-11-16] MEDS ORDERED: Protamine Sulfate 50 MG/5 ML VIAL ONE ×2 (12:19→18:02)
[2021-11-16] MEDS ORDERED: Xylocaine 1% w/ Epi 1:100K 10 ML VIAL ONE (12:19)
[2021-11-16] MEDS ORDERED: Dexmedetomidine 200 MCG/2 ML VIAL ONE (12:32)
[2021-11-16] MEDS ORDERED: ceFAZolin 2 GM/Dextrose 50 ML IVPB ONE (12:41)
[2021-11-16] MEDS ORDERED: Ondansetron PF 4 MG/2 ML Vial ONE (12:59)
[2021-11-16] MEDS ORDERED: PROPOFOL 200 MG/20 ML VIAL ONE (12:59)
[2021-11-16] MEDS ORDERED: Dextrose 5% in Water 1,000 ML IV PRN (18:23)
[2021-11-16] MEDS ORDERED: traMADol HCl 50 MG TAB PO PRN ×2 (18:23→20:12)
[2021-11-16] MEDS ORDERED: hydrALAZINE 20 MG/ML VIAL SLOW IVP PRN (18:23)
[2021-11-16] MEDS ORDERED: Acetaminophen 325 MG TAB PO PRN (18:23)
[2021-11-16] MEDS ORDERED: HYDROcodone/Acetaminophen 10/325 mg Tablet PO PRN ×2 (18:23)
[2021-11-16] MEDS ORDERED: Dextrose 50% Abboject 50 ML SYRINGE SLOW IVP PRN (18:23)
[2021-11-16] MEDS ORDERED: HYDROcodone/Acetaminophen 7.5/325 mg Tablet PO PRN (18:27)
[2021-11-16] MEDS ORDERED: Nitroglycerin 0.4 MG TAB (25 Tab Bottle) SL PRN (18:27)
[2021-11-16] MEDS ORDERED: ceFAZolin 2 GM/Dextrose 50 ML 2 GM in Premix Bag 1 BAG IVPB SCH (20:30)
[2021-11-16] MEDS ORDERED: Famotidine 20 MG TAB PO SCH (21:00)
[2021-11-16] MEDS: hydrALAZINE 25 MG TAB PO SCH (21:21)
[2021-11-16 23:59] VITALS: BMI 22.5
[2021-11-17 05:52] LABS: #Eosinphils 0.1 thou/uL (0.0-0.7); #Monocytes 1.3 thou/uL (0.11-0.59); #Neutrophils 10.1 thou/uL (1.40-6.50); %Basophils 0.4 % (0.0-1.0); %Eosinophils 0.5 % (0.0-10.0); %Lymphocytes 8.3 % (21.0-51.0); %Monocytes 10.1 % (0.0-10.0); %Neutrophils 80.7 % (42.0-75.0); Mean Corpuscular HGB CONC 30.6 g/dL (32.0-36.0); Mean Corpuscular Hemoglobin 28.9 pg (27.0-31.0); Mean Corpuscular Volume 94.3 fL (78.0-98.0); Mean Platelet Volume 8.7 fL (7.4-10.4); Platelet Count 154 thou/uL (130-400); RBC Distribution Width 17.4 % (11.5-14.5); Red Blood Cell (RBC) Count 3.45 mill/uL (4.70-6.10); White Blood Cell (WBC) Count 12.5 thou/uL (4.8-10.8)
[2021-11-17 06:13] LABS: Anion Gap 20 mmol/L (10-20); BUN (Urea Nitrogen) 53 mg/dL (8.4-25.7); Calc. Creatinine Clearance 14 mL/min (70-130); Calcium 8.8 mg/dL (7.8-10.44); Carbon Dioxide 24 mmol/L (22-29); Chloride 99 mmol/L (98-107); Glucose 156 mg/dL (70-105); Potassium 5.1 mmol/L (3.5-5.1); Sodium 138 mmol/L (136-145)
[2021-11-17] MEDS: hydrALAZINE 25 MG TAB PO SCH (07:59)
[2021-11-17] MEDS ORDERED: Ferrous Sulfate 325 MG TAB PO SCH (08:00)
[2021-11-17] MEDS ORDERED: Carvedilol 25 MG TAB PO SCH (08:00)
[2021-11-17 08:02] VITALS: BP 136/86
[2021-11-17 08:35] VITALS: TEMP 98.4
[2021-11-17] MEDS ORDERED: Isosorbide Mononitrate 20 MG TAB PO SCH (09:00)
[2021-11-17] MEDS ORDERED: Aspirin 81 mg Enteric Coated Tablet PO SCH (09:00)
== END 2021-11-17 13:13 | disposition home or self-care (01) | DRG 252 ==
LOC: SDC 07:34 → T4-A 18:23
PROVIDERS: ADMIT Specialist; ATTEND Specialist
PROC: 03LB0ZZ Occlusion of Right Radial Artery, Open Approach (ICD-10-PCS; principal; 2021-11-16)
PROC: 06BP4ZZ Excision of Right Saphenous Vein, Percutaneous Endoscopic Approach (ICD-10-PCS; 2021-11-16)
PROC: 031 Upper Arteries, Bypass (ICD-10-PCS; 2021-11-16)
PROC: B31 Imaging, Upper Arteries, Fluoroscopy (ICD-10-PCS; 2021-11-16)
DX: T82.590A Other mechanical complication of surgically created arteriovenous fistula, initial encounter (principal); N18.6 End stage renal disease; U07.1 COVID-19; I12.0 Hypertensive chronic kidney disease with stage 5 chronic kidney disease or end stage renal disease; E11.52 Type 2 diabetes mellitus with diabetic peripheral angiopathy with gangrene; I96 Gangrene, not elsewhere classified; E78.5 Hyperlipidemia, unspecified; I25.10 Atherosclerotic heart disease of native coronary artery without angina pectoris; D63.1 Anemia in chronic kidney disease; H40.9 Unspecified glaucoma; I99.8 Other disorder of circulatory system; I77.89 Other specified disorders of arteries and arterioles; E78.00 Pure hypercholesterolemia, unspecified; E11.22 Type 2 diabetes mellitus with diabetic chronic kidney disease; Y84.1 Kidney dialysis as the cause of abnormal reaction of the patient, or of later complication, without mention of misadventure at the time of the procedure; Z88.8 Allergy status to other drugs, medicaments and biological substances; Z95.1 Presence of aortocoronary bypass graft; Z79.899 Other long term (current) drug therapy
CPT/HCPCS: 36246; 36415; 36416; 80048; 85025; 90935; C1776; G0257; J0690; J1644; J2405; J2704; J2720; J3010; Q9967; S0020

== ENCOUNTER 2022-08-09 10:06 | Outpatient (CLI) | payer OTHER | END 2022-08-09 10:07 | disposition home or self-care (01) | LOC: LABBT 10:06 | PROVIDERS: ATTEND Thoracic Surgery (Cardiothoracic Vascular Surgery) | DX: Z20.822 Contact with and (suspected) exposure to COVID-19 (principal) | CPT/HCPCS: 87811 ==

== ENCOUNTER 2022-08-10 05:50 | Day surgery (SDC) | payer OTHER ==
[2022-08-09 11:16] VITALS: BMI 23.0
[2022-08-10] MEDS ORDERED: Lidocaine 1% (PF) 30 ML VIAL ONE (06:10)
[2022-08-10] MEDS ORDERED: Heparin 10,000 UNITS/ 10 ML VIAL ONE (06:10)
[2022-08-10] MEDS ORDERED: Midazolam HCl 2 mg/2 ml Vial ONE (06:54)
[2022-08-10] MEDS ORDERED: Fentanyl 100 MCG/2 ML VIAL ONE (06:54)
[2022-08-10] MEDS ORDERED: Iopamidol 370 76% 100 ML VIAL ONE (10:34)
== END 2022-08-10 14:09 | disposition home or self-care (01) ==
LOC: SDC 05:50
PROVIDERS: ATTEND Thoracic Surgery (Cardiothoracic Vascular Surgery)
PROC: B31HZZZ Fluoroscopy of Right Upper Extremity Arteries (ICD-10-PCS; principal; 2022-08-10)
DX: E11.52 Type 2 diabetes mellitus with diabetic peripheral angiopathy with gangrene (principal); I70.268 Atherosclerosis of native arteries of extremities with gangrene, other extremity; I99.8 Other disorder of circulatory system; T82.898A Other specified complication of vascular prosthetic devices, implants and grafts, initial encounter; I12.0 Hypertensive chronic kidney disease with stage 5 chronic kidney disease or end stage renal disease; E11.22 Type 2 diabetes mellitus with diabetic chronic kidney disease; N18.6 End stage renal disease; E78.00 Pure hypercholesterolemia, unspecified; K21.9 Gastro-esophageal reflux disease without esophagitis; Z79.82 Long term (current) use of aspirin; Z79.899 Other long term (current) drug therapy; Z88.6 Allergy status to analgesic agent; Z88.8 Allergy status to other drugs, medicaments and biological substances; Z95.1 Presence of aortocoronary bypass graft; Z89.021 Acquired absence of right finger(s); Z99.2 Dependence on renal dialysis
CPT/HCPCS: 36216; 75710; C1769 ×2; C1887; J1642; J1644; J2001; J2250; J3010; Q9967

== ENCOUNTER 2022-08-16 09:49 | Day surgery (SDC) | payer OTHER ==
[2022-08-15 11:40] VITALS: BMI 23.1
[2022-08-16] MEDS ORDERED: Lidocaine 1% MPF 2 ML VIAL ONE (11:22)
[2022-08-16 11:28] LABS: #Eosinphils 0.3 thou/uL (0.0-0.7); #Lymphocytes 1.5 thou/uL (1.20-3.40); #Monocytes 0.5 thou/uL (0.11-0.59); #Neutrophils 1.8 thou/uL (1.40-6.50); %Basophils 0.7 % (0.0-1.0); %Eosinophils 6.2 % (0.0-10.0); %Lymphocytes 36.1 % (21.0-51.0); %Monocytes 12.2 % (0.0-10.0); %Neutrophils 44.9 % (42.0-75.0); Hemoglobin 11.7 g/dL (14.0-18.0); Mean Corpuscular HGB CONC 31.4 g/dL (32.0-36.0); Mean Corpuscular Hemoglobin 32.1 pg (27.0-31.0); RBC Distribution Width 14.6 % (11.5-14.5); Red Blood Cell (RBC) Count 3.65 mill/uL (4.70-6.10); White Blood Cell (WBC) Count 4.1 thou/uL (4.8-10.8)
[2022-08-16 11:29] LABS: Anion Gap 17 mmol/L (10-20); BUN (Urea Nitrogen) 37 mg/dL (8.4-25.7); Calc. Creatinine Clearance 20 mL/min (70-130); Calcium 9.5 mg/dL (7.8-10.44); Carbon Dioxide 27 mmol/L (22-29); Chloride 97 mmol/L (98-107); Estimated GFR 15; Glucose 69 mg/dL (70-105); Magnesium 2.2 mg/dL (1.6-2.6); Potassium 4.7 mmol/L (3.5-5.1); Sodium 136 mmol/L (136-145)
[2022-08-16 11:42] LABS: Mean Platelet Volume 9.6 fL (7.4-10.4); Platelet Count 116 thou/uL (130-400); Platelet Morphology Comment Appears Decreased; RBC Morphology Normal
[2022-08-16] MEDS ORDERED: EPINEPHrine 1 MG/ML AMP ONE (14:05)
[2022-08-16] MEDS ORDERED: Bupivacaine 0.25% HCL 30 ML VIAL ONE (14:05)
[2022-08-16] MEDS ORDERED: Heparin 5,000 UNITS/ML VIAL ONE (14:14)
[2022-08-16] MEDS ORDERED: Protamine Sulfate 50 MG/5 ML VIAL ONE (14:14)
[2022-08-16] MEDS ORDERED: fentaNYL Citrate/PF 100 MCG/2 ML SYRINGE ONE (14:30)
[2022-08-16] MEDS ORDERED: Phenylephrine 10 MG/ML VIAL ONE (14:30)
[2022-08-16] MEDS ORDERED: Sodium Chloride 0.9% 100 ML ONE (14:32)
[2022-08-16] MEDS ORDERED: CEFAZOLIN 2 GM VIAL ONE (14:32)
[2022-08-16] MEDS ORDERED: PROPOFOL 200 MG/20 ML VIAL ONE (14:45)
[2022-08-16] MEDS ORDERED: PHENYLEPHRINE-NS 100 MCG/ML 10 ML SYRINGE ONE (14:45)
[2022-08-16] MEDS ORDERED: Ondansetron PF 4 MG/2 ML Vial ONE (14:45)
[2022-08-16] MEDS ORDERED: Iopamidol 15 ML ONE (15:18)
[2022-08-16] MEDS ORDERED: Fentanyl 100 MCG/2 ML VIAL ONE (17:48)
[2022-08-16] MEDS ORDERED: HYDROcodone/Acetaminophen 5/325 mg Tablet ONE (18:20)
== END 2022-08-16 18:53 | disposition home or self-care (01) ==
LOC: SDC 09:49
PROVIDERS: ATTEND Specialist
PROC: 03WY07Z Revision of Autologous Tissue Substitute in Upper Artery, Open Approach (ICD-10-PCS; principal; 2022-08-16)
DX: I12.0 Hypertensive chronic kidney disease with stage 5 chronic kidney disease or end stage renal disease (principal); E11.22 Type 2 diabetes mellitus with diabetic chronic kidney disease; N18.6 End stage renal disease; E11.52 Type 2 diabetes mellitus with diabetic peripheral angiopathy with gangrene; I70.268 Atherosclerosis of native arteries of extremities with gangrene, other extremity; E78.00 Pure hypercholesterolemia, unspecified; K21.9 Gastro-esophageal reflux disease without esophagitis; Z79.82 Long term (current) use of aspirin; Z79.899 Other long term (current) drug therapy; Z88.8 Allergy status to other drugs, medicaments and biological substances; Z95.1 Presence of aortocoronary bypass graft; Z89.021 Acquired absence of right finger(s); Z99.2 Dependence on renal dialysis
CPT/HCPCS: 76000; 80048; 83735; 85025; 93005; 93010; C1776; J0171; J0690; J1644; J2370; J2405; J2704; J2720; J3010; J3490; Q9967; S0020

== ENCOUNTER 2022-08-17 03:02 | Emergency (ER) | payer OTHER ==
[2022-08-17] MEDS ORDERED: Lidocaine 1% MPF 2 ML VIAL ONE (03:34)
[2022-08-17] MEDS ORDERED: Tranexamic Acid 1,000 MG/10 ML VIAL ONE (03:46)
== END 2022-08-17 04:12 | disposition home or self-care (01) ==
LOC: ERS 03:02
DX: L76.22 Postprocedural hemorrhage of skin and subcutaneous tissue following other procedure (principal); E11.22 Type 2 diabetes mellitus with diabetic chronic kidney disease; N18.6 End stage renal disease; I25.10 Atherosclerotic heart disease of native coronary artery without angina pectoris; Z99.2 Dependence on renal dialysis; Z79.82 Long term (current) use of aspirin; Z79.899 Other long term (current) drug therapy